=== PATIENT | female | born 1955 | race African-American/Black ===

== ENCOUNTER 2019-10-14 15:37 | Inpatient (IN) | payer MEDICARE, MEDICAID ==
--- NOTE | 2019-10-14 16:38 | ER Document Report ---
ED Medical Screen (RME) - General Chief Complaint: General Weakness Stated Complaint: GENERAL WEAKNESS/SWOLLEN LEGS Time Seen by Provider: 10/14/19 16:24 Notes: Patient is a 64-year-old female who presents emergency department with chief complaint of shortness of breath. Patient reports over the past week she has developed bilateral leg swelling, generalized weakness, shortness of breath and some achiness to her left arm. Patient does have an extensive cardiac history. 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 Patient is on Eliquis. Patient reports she feels like she does have some sort of fluid overload. - Related Data Allergies/Adverse Reactions: No Known Allergies Allergy (Unverified 10/14/19 16:22) Past Medical History - Social History Chew tobacco use (# tins/day): No Frequency of alcohol use: None Drug Abuse: None Physical Exam - Vital signs Vitals: Temp Pulse Resp BP Pulse Ox 98.6 F 61 16 153/83 H 95 10/14/19 15:46 10/14/19 15:46 10/14/19 15:46 10/14/19 15:46 10/14/19 15:46 Course - Re-evaluation Re-evalutation: 10/14/19 16:38 Lungs are clear to auscultation. Patient no acute distress. Patient does report shortness of breath with exertion. Patient does have bilateral pitting edema to lower extremities. I have greeted and performed a rapid initial assessment of this patient. A comprehensive ED assessment and evaluation of the patient, analysis of test results and completion of the medical decision making process will be conducted by additional ED providers. - Vital Signs Vital signs: Temp Pulse Resp BP Pulse Ox 98.6 F 61 16 153/83 H 95 10/14/19 15:46 10/14/19 15:46 10/14/19 15:46 10/14/19 15:46 10/14/19 15:46
[2019-10-14 16:58] LABS: ABSOLUTE BASOPHILS # (AUTO) 0.1 10^3/uL (0.0-0.2); ABSOLUTE EOSINOPHILS # (AUTO) 0.1 10^3/uL (0.0-0.6); ABSOLUTE LYMPHOCYTES (AUTO) 0.9 10^3/uL (0.5-4.7); ABSOLUTE MONOCYTES (AUTO) 0.5 10^3/uL (0.1-1.4); ABSOLUTE NEUT (AUTO) 4.1 10^3/uL (1.7-8.2); BASOPHILS % (AUTO) 1.1 % (0-2); EOSINOPHILS % (AUTO) 1.4 % (0-6); HEMATOCRIT 33.9 % (36.0-47.0); HEMOGLOBIN 11.3 g/dL (12.0-15.5); LYMPHOCYTES % (AUTO) 15.5 % (13-45); MEAN CORPUSCULAR HEMOGLOBIN 29.3 pg (27.0-33.4); MEAN CORPUSCULAR HGB CONC 33.2 g/dL (32.0-36.0); MEAN CORPUSCULAR VOLUME 88 fl (80-97); MONOCYTES % (AUTO) 8.9 % (3-13); PLATELET COUNT 229 10^3/uL (150-450); RED BLOOD COUNT 3.84 10^6/uL (3.72-5.28); SEGMENTED NEUTROPHILS % (AUTO) 73.1 % (42-78); TOTAL CELLS COUNTED % (AUTO) 100 %; WHITE BLOOD COUNT 5.7 10^3/uL (4.0-10.5)
--- NOTE | 2019-10-14 17:08 | RADIOLOGY REPORT (SQ) ---
EXAM DESCRIPTION: CHEST 2 VIEWS IMAGES COMPLETED DATE/TIME: 10/14/2019 4:54 pm REASON FOR STUDY: shortness of breath COMPARISON: None. NUMBER OF VIEWS: Two views. TECHNIQUE: Frontal and lateral radiographic views of the chest acquired. LIMITATIONS: None. FINDINGS: LUNGS AND PLEURA: No opacities, masses or pneumothorax. Trace fluid is seen within the ri ght major fissure. MEDIASTINUM AND HILAR STRUCTURES: No masses or contour abnormality. HEART AND VASCULAR STRUCTURES: Cardiac enlargement. Vascular congestion. BONES: No acute findings. HARDWARE: AICD. Midline surgical changes. OTHER: No other significant finding. IMPRESSION: CARDIAC ENLARGEMENT. VASCULAR CONGESTION. TECHNICAL DOCUMENTATION: JOB ID: [id number] 2010 [employer]- All Rights Reserved Reading location - IP/workstation name: [email or web address]
--- NOTE | 2019-10-14 17:21 | ER Document Report ---
ED General - General Chief Complaint: General Weakness Stated Complaint: GENERAL WEAKNESS/SWOLLEN LEGS Time Seen by Provider: 10/14/19 16:24 Mode of Arrival: Ambulatory Information source: Patient Notes: campus president notes 10/14/19 16:24 - ED [facility]: [id number] : [id number] Patient Age: 64 patient states she has had dinesh leg swelling and weakness x 1 week. patient also c/o shortness of breath with walking. reports hx of CHF, states she feels like she is going back into it. reports extensive cardiac hx. Ruslan notes Patient is a 64-year-old female who presents emergency department with chief complaint of shortness of breath. Patient reports over the past week she has developed bilateral leg swelling, generalized weakness, shortness of breath and some achiness to her left arm. Patient does have an extensive cardiac history. 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 Patient is on Eliquis. Patient reports she feels like she does have some sort of fluid overload. my notes 64-year-old female arrives with 1 week history of weakness and bilateral leg edema and dyspnea on exertion shortness of breath. Patient has a extensive cardiac and CHF history. She has a left-sided pacer on chest x-ray as well as cardiomegaly and congestion per radiologist. She has sternal CABG wiring. Patient reports she has had 20 pound weight gain over the last 1 week with dyspnea on exertion only able to walk around 10 feet without being short of breath severely. Patient is usually seen by [facility] and has a history of poor appetite she is only eaten yogurt today. She took extra Bumex yesterday expecting her edema of her legs to decrease but this did not happen. Patient was up all night urinating however. Patient has 15% ejection fraction on her last cardiology check and [facility]. Her daughters name is Jeni and she requested patient to be admitted to hospital. Patient's mother and father and grandmother and grandfather all had heart disease and they are now . Her daughter has diabetes. Patient has had a valve repair. TRAVEL OUTSIDE OF THE [place] IN LAST 30 DAYS: No - HPI Onset: Last week - Related Data Allergies/Adverse Reactions: No Known Allergies Allergy (Unverified 06/20/20 16:22) Past Medical History - General Information source: Patient, Relative - Social History Smoking Status: Never Smoker Cigarette use (# per day): No Chew tobacco use (# tins/day): No Smoking Education Provided: No Frequency of alcohol use: None Drug Abuse: None Lives with: Family Family History: Reviewed & Not Pertinent Patient has suicidal ideation: No Patient has homicidal ideation: No Physical Exam - Vital signs Vitals: Temp Pulse Resp BP Pulse Ox 98.6 F 61 16 153/83 H 95 10/14/19 15:46 10/14/19 15:46 10/14/19 15:46 10/14/19 15:46 10/14/19 15:46 - General General appearance: Alert - HEENT Head: Normocephalic, Atraumatic Eyes: Normal Pupils: PERRL Nasal: Normal Mouth/Lips: Normal Mucous membranes: Normal Pharynx: Normal Neck: Normal - Respiratory Respiratory status: No respiratory distress Chest status: Nontender Breath sounds: Rales Chest palpation: Normal - Cardiovascular Rhythm: Regular Heart sounds: Normal auscultation Murmur: No - Abdominal Inspection: Normal Distension: No distension Bowel sounds: Normal Tenderness: Nontender Organomegaly: No organomegaly - Rectal Stool: Other - deferred - Genitourinary Speculum exam: Other - deferred - Back Back: Normal - Extremities General upper extremity: Normal inspection General lower extremity: Edema - +2 pitting - Neurological Neuro grossly intact: Yes Cognition: Normal Orientation: AAOx4 [place] Coma Scale Eye Opening: Spontaneous [place] Coma Scale Verbal: Oriented Alberto Coma Scale Motor: Obeys Commands Alberto Coma Scale Total: 15 Speech: Normal Motor strength normal: LUE, RUE, LLE, RLE Sensory: Normal - Psychological Associated symptoms: Normal affect - Skin Skin Temperature: Warm Skin Moisture: Dry Course - Vital Signs Vital signs: Temp Pulse Resp BP Pulse Ox 98.6 F 61 19 151/81 H 95 10/14/19 15:46 10/14/19 15:46 10/14/19 19:01 10/14/19 19:01 10/14/19 19:01 - Laboratory Result Diagrams: 10/14/19 16:45 10/14/19 16:45 Laboratory results interpreted by me: 10/14/19 10/14/19 10/14/19 16:45 16:45 16:45 Hgb 11.3 L Hct 33.9 L RDW 16.0 H Carbon Dioxide 32 H BUN 53 H Creatinine 1.90 H Est GFR ( Amer) 32 L Est GFR (MDRD) Non-Af 27 L Glucose 164 H Magnesium Alkaline Phosphatase 151 H NT-Pro-B Natriuret Pep 65135 H 10/14/19 16:45 Hgb Hct RDW Carbon Dioxide BUN Creatinine Est GFR ( Amer) Est GFR (MDRD) Non-Af Glucose Magnesium 2.6 H Alkaline Phosphatase NT-Pro-B Natriuret Pep - Diagnostic Test Radiology reviewed: Reports reviewed - EKG Interpretation by Me EKG shows normal: Sinus rhythm Rate: Normal Rhythm: Other - Atrial ventricular dual paced rhythm on EKG Critical Care Note - Critical Care Note Total time excluding time spent on procedures (mins): 90 Comments: I called Dr. Ulrich at [phone] and he advises calling the night guard patient at 1900; I spoke with Dr. Kendall Ghosh and he advised IMCU Discharge - Discharge Clinical Impression: WOO (dyspnea on exertion), SOB (shortness of breath), Cardiac LV ejection fraction 10-20% CHF (congestive heart failure) Qualifiers: Heart failure type: unspecified Heart failure chronicity: unspecified Qualified Code(s): I50.9 - Heart failure, unspecified Condition: Good Disposition: ADMITTED INPATIENT Admitting Provider: Augie (Hospitalist) Unit Admitted: [facility]
[2019-10-14 17:22] LABS: ALBUMIN 3.6 g/dL (3.5-5.0); ALKALINE PHOSPHATASE 151 U/L (38-126); ANION GAP 8 (5-19); ASPARTATE AMINO TRANSFERASE 33 U/L (14-36); BILIRUBIN,DIRECT 0.3 mg/dL (0.0-0.4); BILIRUBIN,TOTAL 1.2 mg/dL (0.2-1.3); BLOOD UREA NITROGEN 53 mg/dL (7-20); CALCIUM 9.1 mg/dL (8.4-10.2); CARBON DIOXIDE 32 mmol/L (22-30); CHLORIDE 99 mmol/L (98-107); GLUCOSE 164 mg/dL (75-110); TOTAL PROTEIN 6.9 g/dL (6.3-8.2)
[2019-10-14] MEDS ORDERED: BUMETANIDE INJ/PF 1 MG/4 ML SDV IV ONE (17:28)
[2019-10-14 17:33] LABS: TROPONIN I 0.014 ng/mL
[2019-10-14] MEDS ORDERED: METOLAZONE 5 MG TABLET PO ONE (17:47)
[2019-10-14] MEDS ORDERED: METOLAZONE 5 MG TABLET ONE (18:28)
--- NOTE | 2019-10-14 18:54 | EKG REPORT ---
SEVERITY:- ABNORMAL ECG - ATRIAL-VENTRICULAR DUAL-PACED RHYTHM : Confirmed by: Taye Easton MD 14-Oct-2019 18:53:07
[2019-10-14] MEDS ORDERED: ACETAMINOPHEN 325 MG TABLET PO PRN (20:49)
[2019-10-14] MEDS ORDERED: MELATONIN 5 MG TABLET PO PRN (20:49)
[2019-10-14] MEDS ORDERED: HYDRALAZINE HCL INJ/PF 20 MG/1 ML SDV IV PRN (20:49)
[2019-10-14] MEDS ORDERED: MAGNESIUM HYDROXIDE SUSP 30 ML UDCUP PO PRN (20:49)
[2019-10-14] MEDS ORDERED: PROMETHAZINE HCL INJ 25 MG/1 ML VIAL IV PRN (20:49)
[2019-10-14] MEDS ORDERED: LORAZEPAM INJ 2 MG/1 ML VIAL IV PRN (20:49)
[2019-10-14] MEDS ORDERED: GUAIFENESIN SYRP 200 MG/10 ML UDC PO PRN (20:49)
[2019-10-14] MEDS ORDERED: MORPHINE SULFATE 10 MG/ML INJ IV PRN (20:49)
[2019-10-14] MEDS ORDERED: NORMAL SALINE 250 ML with FUROSEMIDE 250 MG IV PRN ×2 (20:51)
[2019-10-14] MEDS ORDERED: NITROGLYCERIN 2% OINTMENT 1 GM PACKET TP ONE (21:15)
[2019-10-14] MEDS ORDERED: HEPARIN SOD (PORCINE) 5,000 UNIT/ML 1 ML VIAL SUBCUT SCH (22:00)
[2019-10-14] MEDS: POTASSIUM CHLORIDE 10 MEQ TABLET.ER PO SCH (22:27)
[2019-10-14] MEDS: LOSARTAN POTASSIUM 25 MG TABLET PO SCH (22:27)
--- NOTE | 2019-10-14 22:38 | PDOC H&P ---
History of Present Illness Admission Date/PCP: 10/14/19 20:03 No local PCP Patient complains of: Lower extremity edema History of Present Illness: JULITO NICHOLS is a 64 year old female who presents to the emergency room with a one-week history of lower extremity edema. She admits to the constant gradual development of bilateral lower extremity swelling over the last week, accompanied by generalized weakness and associated with progressively worsening dyspnea on exertion and a 20 pound weight gain. She denies other associated or accompanying signs and symptoms. She admits prior similar episodes when she has had "fluid overload". She has a history of severe systolic congestive heart failure and took an additional dose of Bumex yesterday with no improvement in her lower extremity edema. She denies identification of any aggravating or ameliorating factors for her lower extremity edema. In the emergency room she was found to have early pulmonary edema by chest x-ray and a BNP of 36,000. Her emergency room exam demonstrated pitting edema of the bilateral lower extremities. She was subsequently admitted to the hospital for further evaluation and treatment per the CHF protocol on IMCU. Past Medical History Cardiac Medical History: Reports: Congestive Heart Failure - Systolic ejection fraction of 15% per patient's report, Hypertension, Other - Valvular heart disease, pacemaker/defibrillator Denies: Atrial Fibrillation, Coronary Artery Disease, Myocardial Infarction Pulmonary Medical History: Reports: Asthma - Since childhood, Tuberculosis - Remote past Denies: Chronic Obstructive Pulmonary Disease (COPD) EENT Medical History: Denies: Cataracts, Ears - Hearing aids Neurological Medical History: Denies: Hemorrhagic CVA, Ischemic CVA, Seizures Endocrine Medical History: Reports: Obesity Denies: Diabetes Mellitus Type 1, Diabetes Mellitus Type 2, Hyperthyroidism, Hypothyroidism Renal/ Medical History: Reports: Chronic Kidney Disease Denies: Nephrolithiasis Malignancy Medical History: Reports: None GI Medical History: Denies: Cirrhosis, Crohn's Disease, Hepatitis, Peptic Ulcer Disease, Ulcerative Colitis Musculoskeltal Medical History: Denies: Arthritis, Gout Skin Medical History: Reports: Eczema - Since childhood Denies: Psoriasis Psychiatric Medical History: Denies: Alcohol Dependency, Substance Abuse, Tobacco Dependency Traumatic Medical History: Reports: None Hematology: Denies: Anemia, Bleeding Tendencies Infectious Medical History: Reports: None Past Surgical History Past Surgical History: Reports: Cardiac Catheterization, Herniorrhaphy, Hysterectomy, Internal Defibrillator - AICD/pacemaker, Pacemaker - AICD/pacemaker, Valve Replacement - Mitral valve replacement (bovine valve), Vascular Surgery - Cardiac ablation Social History Information Source: Patient Lives with: Family Smoking Status: Never Smoker Electronic Cigarette use?: No Frequency of Alcohol Use: None Hx Recreational Drug Use: No Drugs: None Hx Prescription Drug Abuse: No - Advance Directive Resuscitation Status: Full Code Surrogate healthcare decision maker:: Shahana Nichols Family History Family History: CAD, DM, Hypertension, Other - Congestive heart failure. denies: Malignancy Parental Family History Reviewed: Yes Children Family History Reviewed: No Sibling(s) Family History Reviewed.: Yes Medication/Allergy Allergies/Adverse Reactions: No Known Allergies Allergy (Unverified 10/14/19 16:22) Review of Systems Constitutional: PRESENT: weakness. ABSENT: chills, fever(s) Eyes: ABSENT: visual disturbances, other - Eye pain Ears: ABSENT: hearing changes, other - Ear pain Nose, Mouth, and Throat: ABSENT: headache(s), sore throat Cardiovascular: PRESENT: as per HPI, dyspnea on exertion, edema. ABSENT: chest pain, orthropnea, palpitations Respiratory: ABSENT: cough, dyspnea Gastrointestinal: ABSENT: abdominal pain, constipation, diarrhea, nausea, vomiting Genitourinary: ABSENT: dysuria, hematuria Musculoskeletal: ABSENT: back pain, joint swelling Integumentary: ABSENT: pruritus, rash Neurological: ABSENT: confusion, convulsions, focal weakness, memory loss, syncope Psychiatric: ABSENT: anxiety, depression Endocrine: ABSENT: cold intolerance, heat intolerance, polydipsia, polyphagia, polyuria Hematologic/Lymphatic: ABSENT: easy bleeding, easy bruising Allergic/Immunologic: ABSENT: seasonal rhinorrhea Physical Exam Vital Signs: Temp Pulse Resp BP Pulse Ox 98.6 F 61 19 151/81 H 95 10/14/19 15:46 10/14/19 15:46 10/14/19 19:01 10/14/19 19:01 10/14/19 19:01 Intake & Output 10/12/19 10/13/19 10/14/19 23:59 23:59 23:59 Weight 101.151 kg General appearance: PRESENT: no acute distress, cooperative, morbidly obese Head exam: PRESENT: atraumatic, normocephalic Eye exam: PRESENT: conjunctiva pink. ABSENT: conjunctival injection, scleral icterus Ear exam: PRESENT: normal external ear exam. ABSENT: bleeding, drainage Mouth exam: PRESENT: dry mucosa, neck supple Neck exam: PRESENT: JVD - Bilateral at 90 degrees of elevation. ABSENT: thyromegaly, tracheal deviation Respiratory exam: PRESENT: decreased breath sounds - Breath sounds decreased at both bases, rales - Bibasilar fine rales, symmetrical Cardiovascular exam: PRESENT: RRR. ABSENT: clicks, gallop - S4 gallop, rubs Pulses: PRESENT: normal carotid pulses, normal radial pulses Vascular exam: PRESENT: normal capillary refill. ABSENT: pallor GI/Abdominal exam: PRESENT: normal bowel sounds, soft Rectal exam: PRESENT: deferred Extremities exam: PRESENT: pedal edema - Bilateral, +2 edema - 2+ pitting edema of the bilateral lower extremities below the knees. ABSENT: joint swelling Musculoskeletal exam: ABSENT: deformity, dislocation Neurological exam: PRESENT: alert, oriented to person, oriented to place, oriented to time, oriented to situation, CN II-XII grossly intact. ABSENT: motor sensory deficit Psychiatric exam: PRESENT: appropriate affect, normal mood Skin exam: PRESENT: dry, intact, warm. ABSENT: jaundice, rash, urticaria Results Laboratory Results: 10/14/19 16:45 10/14/19 16:45 10/14/19 10/14/19 10/14/19 16:45 16:45 16:45 WBC 5.7 RBC 3.84 Hgb 11.3 L Hct 33.9 L MCV 88 MCH 29.3 MCHC 33.2 RDW 16.0 H Plt Count 229 Seg Neutrophils % 73.1 Sodium 138.9 Potassium 4.0 Chloride 99 Carbon Dioxide 32 H Anion Gap 8 BUN 53 H Creatinine 1.90 H Est GFR ( Amer) 32 L Glucose 164 H Calcium 9.1 Magnesium 2.6 H Total Bilirubin 1.2 AST 33 Alkaline Phosphatase 151 H Total Protein 6.9 Albumin 3.6 10/14/19 16:45 Troponin I 0.014 NT-Pro-B Natriuret Pep 17387 H Impressions: Chest X-Ray 10/14/19 16:29 IMPRESSION: CARDIAC ENLARGEMENT. VASCULAR CONGESTION. Assessment and Plan - Diagnosis (1) Pulmonary edema with congestive heart failure Is this a current diagnosis for this admission?: Yes (2) Acute on chronic systolic congestive heart failure Is this a current diagnosis for this admission?: Yes (3) Chronic systolic congestive heart failure Is this a current diagnosis for this admission?: Yes (4) Cardiac LV ejection fraction 10-20% Is this a current diagnosis for this admission?: Yes (5) Bilateral lower extremity edema Is this a current diagnosis for this admission?: Yes (6) History of valvular heart disease Is this a current diagnosis for this admission?: Yes - Plan Summary Summary: Patient is admitted to the [facility] for the congestive heart failure protocol, where she will receive routine supportive and symptomatic cares. A cardiology consultation with Dr. Hartmann will be obtained. Patient will use morphine sulfate 2 mg IV every hour as needed for severe dyspnea. 1 inch of Nitropaste will be applied every 6 hours. She will be started on a continuous furosemide infusion for initial treatment. She will use Ativan 1 mg IV every 4 hours as needed for anxiety or restlessness. Laboratory and ultrasound evaluations will be obtained as per the CHF protocol. Patient will be placed on a cardiac diet. She will receive supportive supplemental oxygen therapy as required to maintain an adequate oxygen saturation. - Time Time Spent with patient: 15-24 minutes Medications reviewed and adjusted accordingly: Yes Anticipated discharge: Home with Homehealth - Inpatient Certification Based on my medical assessment, after consideration of the patient's comorbidities, presenting symptoms, or acuity I expect that the services needed warrant INPATIENT care.: Yes I certify that my determination is in accordance with my understanding of Medicare's requirements for reasonable and necessary INPATIENT services [42 CFR 412.3e].: Yes Medical Necessity: Need Close Monitoring Due to Risk of Patient Decompensation, Need For Continuous Telemetry Monitoring, Risk of Complication if Not Cared For in Hospital
[2019-10-14 23:20] LABS: APPEARANCE,URINE CLEAR; BILIRUBIN,URINE NEGATIVE (NEGATIVE); COLOR,URINE STRAW; GLUCOSE, URINE NEGATIVE (NEGATIVE); KETONES,URINE NEGATIVE (NEGATIVE); LEUKOCYTE ESTERASE,URINE NEGATIVE (NEGATIVE); NITRITE,URINE NEGATIVE (NEGATIVE); PROTEIN,URINE NEGATIVE (NEGATIVE); URINE SPECIFIC GRAVITY 1.006; UROBILINOGEN,URINE NEGATIVE mg/dL (<2.0)
[2019-10-14 23:36] LABS: CREATINE KINASE MB 0.28 ng/mL (<4.55); TROPONIN I 0.015 ng/mL
[2019-10-15 01:04] LABS: ANION GAP 10 (5-19); BLOOD UREA NITROGEN 56 mg/dL (7-20); CALCIUM 8.9 mg/dL (8.4-10.2); CARBON DIOXIDE 27 mmol/L (22-30); CHLORIDE 100 mmol/L (98-107); GLUCOSE 242 mg/dL (75-110); POTASSIUM 3.8 mmol/L (3.6-5.0)
[2019-10-15 05:35] LABS: HEMATOCRIT 29.6 % (36.0-47.0); HEMOGLOBIN 9.8 g/dL (12.0-15.5); MEAN CORPUSCULAR HGB CONC 33.1 g/dL (32.0-36.0); MEAN CORPUSCULAR VOLUME 88 fl (80-97); PLATELET COUNT 198 10^3/uL (150-450); RED BLOOD COUNT 3.39 10^6/uL (3.72-5.28); RED CELL DISTRIBUTION WIDTH 16.3 % (11.5-14.0); WHITE BLOOD COUNT 4.8 10^3/uL (4.0-10.5)
[2019-10-15 05:41] LABS: VENOUS BLOOD BASE EXCESS 5.9 mmol/L; VENOUS BLOOD PCO2 41.7 mmHg (35-63); VENOUS BLOOD PH 7.48 (7.30-7.42)
[2019-10-15] MEDS ORDERED: NITROGLYCERIN 2% OINTMENT 1 GM PACKET TP SCH (06:00)
[2019-10-15 06:06] LABS: ANION GAP 6 (5-19); BLOOD UREA NITROGEN 54 mg/dL (7-20); CALCIUM 8.8 mg/dL (8.4-10.2); CARBON DIOXIDE 31 mmol/L (22-30); CHLORIDE 100 mmol/L (98-107); CHOLESTEROL 84.13 mg/dL (0-200); GLUCOSE 154 mg/dL (75-110); POTASSIUM 3.6 mmol/L (3.6-5.0); TRIGLYCERIDES 51 mg/dL (<150)
[2019-10-15 06:11] LABS: CREATINE KINASE MB 0.25 ng/mL (<4.55); TROPONIN I 0.017 ng/mL
[2019-10-15 06:17] LABS: DIRECT LDL 50 mg/dL (<100)
[2019-10-15] MEDS: PANTOPRAZOLE SODIUM 40 MG TABLET.DR PO SCH (06:39)
[2019-10-15] MEDS ORDERED: FUROSEMIDE INJ/PF 100 MG/10 ML SDV ONE ×2 (06:41→06:52)
[2019-10-15] MEDS: LOSARTAN POTASSIUM 25 MG TABLET PO SCH (09:45)
[2019-10-15] MEDS: APIXABAN 5 MG TABLET PO SCH ×2 (09:46→18:02)
[2019-10-15] MEDS: DOCUSATE SODIUM 100 MG CAPSULE PO SCH ×2 (09:46→18:02)
[2019-10-15] MEDS: POTASSIUM CHLORIDE 10 MEQ TABLET.ER PO SCH ×2 (09:46→21:41)
[2019-10-15] MEDS ORDERED: CLOPIDOGREL BISULFATE 75 MG TABLET PO SCH (10:00)
--- NOTE | 2019-10-15 11:16 | PDOC CONSULTATION ---
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 She admits to the constant gradual development of bilateral lower extremity swelling over the last week, accompanied by generalized weakness associated with progressively worsening dyspnea on exertion and a 20 pound weight gain as well as LE edema. She had been treated with lasix since admission and feels slightly better this morning. She specifically denies CP, palpitations, dizziness, lightheadedness, syncope and presyncope. Her cardiac troponin had been negative and her BNP is elevated at 36K. Her telemetry shows A-V pacing. Physical exam on 10/15/2019: GENERAL: Pleasant and conversational. Morbidly obese. Oriented x3 with normal mood. Not in acute distress. Well groomed and well developed. HEENT: Normocephalic, atraumatic. Pupils equal. Sclerae anicteric. Oropharynx moist. NECK: Difficult to evaluate for JVD given her body habitus. No carotid bruits. LUNGS: Clear to auscultation bilaterally. Normal respiratory effort without the use of accessory muscles or intercostal retractions. CARDIOVASCULAR: Regular rate and rhythm, normal S1 and S2 without murmurs, rubs, or gallops. PMI not displaced. EXTREMITIES: 3+ pitting edema bilaterally, no cyanosis, no clubbing. Distal pulses are difficult to palpate given her body habitus. SKIN: No lesions or rashes. MUSCULOSKELETAL: No chest tenderness to palpation. NEUROLOGIC: Nonfocal. No gross sensory or motor deficits bilateral upper or l ower extremities. Past Medical History Cardiac Medical History: Reports: Congestive Heart Failure - Systolic ejection fraction of 15% per patient's report, Hypertension, Other - Valvular heart disease, pacemaker/defibrillator Denies: Atrial Fibrillation, Coronary Artery Disease, Myocardial Infarction Pulmonary Medical History: Reports: Asthma - Since childhood, Tuberculosis - Remote past Denies: Chronic Obstructive Pulmonary Disease (COPD) EENT Medical History: Denies: Cataracts, Ears - Hearing aids Neurological Medical History: Denies: Hemorrhagic CVA, Ischemic CVA, Seizures Endocrine Medical History: Reports: Obesity Denies: Diabetes Mellitus Type 1, Diabetes Mellitus Type 2, Hyperthyroidism, Hypothyroidism Renal/ Medical History: Reports: Chronic Kidney Disease Denies: Nephrolithiasis Malignancy Medical History: Reports: None GI Medical History: Denies: Cirrhosis, Crohn's Disease, Hepatitis, Peptic Ulcer Disease, Ulcerative Colitis Musculoskeltal Medical History: Denies: Arthritis, Gout Skin Medical History: Reports: Eczema - Since childhood Denies: Psoriasis Psychiatric Medical History: Reports: Depression Denies: Alcohol Dependency, Substance Abuse, Tobacco Dependency Traumatic Medical History: Reports: None Hematology: Denies: Anemia, Bleeding Tendencies Infectious Medical History: Reports: None Past Surgical History Past Surgical History: Reports: Cardiac Catheterization, Herniorrhaphy, Hysterectomy, Internal Defibrillator - AICD/pacemaker, Pacemaker - AICD/pacemaker, Valve Replacement - Mitral valve replacement (bovine valve), Vascular Surgery - Cardiac ablation Social History Lives with: Family Smoking Status: Never Smoker Electronic Cigarette use?: No Frequency of Alcohol Use: None Hx Recreational Drug Use: No Drugs: None Hx Prescription Drug Abuse: No - Advance Directive Resuscitation Status: Full Code Family History Family History: CAD, DM, Hypertension, Other - Congestive heart failure. denies: Malignancy Parental Family History Reviewed: Yes Children Family History Reviewed: Yes Sibling(s) Family History Reviewed.: Yes Medication/Allergy Allergies/Adverse Reactions: No Known Allergies Allergy (Unverified 10/14/19 16:22) Physical Exam Vital Signs: Temp Pulse Resp BP Pulse Ox 98.1 F 61 15 158/89 H 97 10/15/19 03:41 10/15/19 03:41 10/15/19 03:41 10/15/19 03:41 10/15/19 03:41 Intake & Output 10/14/19 10/15/19 10/16/19 06:59 06:59 06:59 Weight 101.5 kg Results Laboratory Results: 10/15/19 05:19 10/15/19 05:19 10/14/19 10/14/19 10/14/19 16:45 16:45 16:45 WBC 5.7 RBC 3.84 Hgb 11.3 L Hct 33.9 L MCV 88 MCH 29.3 MCHC 33.2 RDW 16.0 H Plt Count 229 Seg Neutrophils % 73.1 VBG pH VBG pCO2 VBG HCO3 VBG Base Excess Sodium 138.9 Potassium 4.0 Chloride 99 Carbon Dioxide 32 H Anion Gap 8 BUN 53 H Creatinine 1.90 H Est GFR ( Amer) 32 L Glucose 164 H Calcium 9.1 Magnesium 2.6 H Total Bilirubin 1.2 AST 33 Alkaline Phosphatase 151 H Total Protein 6.9 Albumin 3.6 Triglycerides Cholesterol LDL Cholesterol Direct VLDL Cholesterol HDL Cholesterol TSH Free T3 pg/mL Urine Color Urine Appearance Urine pH Ur Specific [place] Urine Protein Urine Glucose (UA) Urine Ketones Urine Blood Urine Nitrite Ur Leukocyte Esterase Urine WBC (Auto) Urine RBC (Auto) 10/14/19 10/14/19 10/14/19 16:45 20:21 22:56 WBC RBC Hgb Hct MCV MCH MCHC RDW Plt Count Seg Neutrophils % VBG pH VBG pCO2 VBG HCO3 VBG Base Excess Sodium 136.6 L Potassium 3.8 Chloride 100 Carbon Dioxide 27 Anion Gap 10 BUN 56 H Creatinine 1.84 H Est GFR ( Amer) 34 L Glucose 242 H Calcium 8.9 Magnesium Total Bilirubin AST Alkaline Phosphatase Total Protein Albumin Triglycerides Cholesterol LDL Cholesterol Direct VLDL Cholesterol HDL Cholesterol TSH Free T3 pg/mL 3.56 Urine Color STRAW Urine Appearance CLEAR Urine pH 7.0 Ur Specific [place] 1.006 Urine Protein NEGATIVE Urine Glucose (UA) NEGATIVE Urine Ketones NEGATIVE Urine Blood NEGATIVE Urine Nitrite NEGATIVE Ur Leukocyte Esterase NEGATIVE Urine WBC (Auto) 1 Urine RBC (Auto) 1 10/15/19 10/15/19 10/15/19 05:19 05:19 05:19 WBC 4.8 RBC 3.39 L Hgb 9.8 L Hct 29.6 L MCV 88 MCH 29.0 MCHC 33.1 RDW 16.3 H Plt Count 198 Seg Neutrophils % VBG pH VBG pCO2 VBG HCO3 VBG Base Excess Sodium 136.6 L Potassium 3.6 Chloride 100 Carbon Dioxide 31 H Anion Gap 6 BUN 54 H Creatinine 1.82 H Est GFR ( Amer) 34 L Glucose 154 H Calcium 8.8 Magnesium 2.2 Total Bilirubin AST Alkaline Phosphatase Total Protein Albumin Triglycerides 51 Cholesterol 84.13 LDL Cholesterol Direct 50 VLDL Cholesterol 10.0 HDL Cholesterol 24 L TSH 1.33 Free T3 pg/mL Urine Color Urine Appearance Urine pH Ur Specific [place] Urine Protein Urine Glucose (UA) Urine Ketones Urine Blood Urine Nitrite Ur Leukocyte Esterase Urine WBC (Auto) Urine RBC (Auto) 10/15/19 05:19 WBC RBC Hgb Hct MCV MCH MCHC RDW Plt Count Seg Neutrophils % VBG pH 7.48 H VBG pCO2 41.7 VBG HCO3 30.0 VBG Base Excess 5.9 Sodium Potassium Chloride Carbon Dioxide Anion Gap BUN Creatinine Est GFR ( Amer) Glucose Calcium Magnesium Total Bilirubin AST Alkaline Phosphatase Total Protein Albumin Triglycerides Cholesterol LDL Cholesterol Direct VLDL Cholesterol HDL Cholesterol TSH Free T3 pg/mL Urine Color Urine Appearance Urine pH Ur Specific [place] Urine Protein Urine Glucose (UA) Urine Ketones Urine Blood Urine Nitrite Ur Leukocyte Esterase Urine WBC (Auto) Urine RBC (Auto) 10/14/19 10/14/19 10/14/19 16:45 22:56 22:56 Creatine Kinase 31 CK-MB (CK-2) 0.28 Troponin I 0.014 0.015 NT-Pro-B Natriuret Pep [id number] H 10/15/19 10/15/19 05:19 05:19 Creatine Kinase 28 L CK-MB (CK-2) 0.25 Troponin I 0.017 NT-Pro-B Natriuret Pep Impressions: Chest X-Ray 10/14/19 16:29 IMPRESSION: CARDIAC ENLARGEMENT. VASCULAR CONGESTION. 10/15/19 05:19 10/15/19 05:19 MCV 88 fl (80-97) 10/15/19 05:19 MCH 29.0 pg (27.0-33.4) 10/15/19 05:19 MCHC 33.1 g/dL (32.0-36.0) 10/15/19 05:19 RDW 16.3 % (11.5-14.0) H 10/15/19 05:19 Seg Neutrophils % 73.1 % (42-78) 10/14/19 16:45 VBG pH 7.48 (7.30-7.42) H 10/15/19 05:19 VBG pCO2 41.7 mmHg (35-63) 10/15/19 05:19 VBG HCO3 30.0 mmol/L (20-32) 10/15/19 05:19 VBG Base Excess 5.9 mmol/L 10/15/19 05:19 Chloride 100 mmol/L (98-107) 10/15/19 05:19 Carbon Dioxide 31 mmol/L (22-30) H 10/15/19 05:19 Anion Gap 6 (5-19) 10/15/19 05:19 Est GFR ( Amer) 34 (>60) L 10/15/19 05:19 Glucose 154 mg/dL (75-110) H 10/15/19 05:19 Calcium 8.8 mg/dL (8.4-10.2) 10/15/19 05:19 Magnesium 2.2 mg/dL (1.6-2.3) 10/15/19 05:19 Total Bilirubin 1.2 mg/dL (0.2-1.3) 10/14/19 16:45 AST 33 U/L (14-36) 10/14/19 16:45 Alkaline Phosphatase 151 U/L (38-126) H 10/14/19 16:45 Total Protein 6.9 g/dL (6.3-8.2) 10/14/19 16:45 Albumin 3.6 g/dL (3.5-5.0) 10/14/19 16:45 Triglycerides 51 mg/dL (<150) 10/15/19 05:19 Cholesterol 84.13 mg/dL (0-200) 10/15/19 05:19 LDL Cholesterol Direct 50 mg/dL (<100) 10/15/19 05:19 VLDL Cholesterol 10.0 mg/dL (10-31) 10/15/19 05:19 HDL Cholesterol 24 mg/dL (>40) L 10/15/19 05:19 TSH 1.33 uIU/mL (0.47-4.68) 10/15/19 05:19 Free T3 pg/mL 3.56 pg/mL (2.77-5.27) 10/14/19 16:45 Urine Color STRAW 10/14/19 20:21 Urine Appearance CLEAR 10/14/19 20:21 Urine pH 7.0 (5.0-9.0) 10/14/19 20:21 Ur Specific [place] 1.006 10/14/19 20:21 Urine Protein NEGATIVE mg/dL (NEGATIVE) 10/14/19 20:21 Urine Glucose (UA) NEGATIVE mg/dL (NEGATIVE) 10/14/19 20:21 Urine Ketones NEGATIVE mg/dL (NEGATIVE) 10/14/19 20:21 Urine Blood NEGATIVE (NEGATIVE) 10/14/19 20:21 Urine Nitrite NEGATIVE (NEGATIVE) 10/14/19 20:21 Ur Leukocyte Esterase NEGATIVE (NEGATIVE) 10/14/19 20:21 Urine WBC (Auto) 1 /HPF 10/14/19 20:21 Urine RBC (Auto) 1 /HPF 10/14/19 20:21 10/14/19 10/14/19 10/14/19 16:45 22:56 22:56 Creatine Kinase 31 CK-MB (CK-2) 0.28 Troponin I 0.014 0.015 NT-Pro-B Natriuret Pep [id number] H 10/15/19 10/15/19 05:19 05:19 Creatine Kinase 28 L CK-MB (CK-2) 0.25 Troponin I 0.017 NT-Pro-B Natriuret Pep Current Medication List Generic Name Dose Route Start Last Admin Trade Name Freq PRN Reason Stop Dose Admin Acetaminophen 650 mg 10/14/19 20:49 Tylenol 325 Mg Tablet PO 11/13/19 20:48 Q4HP PRN For headache, pain or fever Al Hydrox/Mg Hydrox/Simethicone 30 ml 10/14/19 20:49 Maalox Plus Susp 30 Udcup PO 11/13/19 20:48 Q6HP PRN [facility]ART[facility]URN Apixaban 5 mg 10/15/19 10:00 Eliquis 5 Mg Tablet PO 11/14/19 09:59 BID [facility] Clopidogrel Bisulfate 75 mg 10/15/19 10:00 Plavix 75 Mg Tablet PO 11/14/19 09:59 DAILY [facility] Docusate Sodium 100 mg 10/15/19 10:00 Colace 100 Mg Capsule PO 11/14/19 09:59 BID [facility] Guaifenesin 200 mg 10/14/19 20:49 Robitussin Syrup 200 Mg/10 Ml Ud Cup PO 11/13/19 20:48 Q4HP PRN COUGH Hydralazine HCl 20 mg 10/14/19 20:49 Apresoline Inj/Pf 20 Mg/1 Ml Sdv IV 11/13/19 20:48 Q4HP PRN Give For Sbp > 160 / Dbp > 100 Furosemide 250 mg/ Sodium 250 mls @ 20 mls/hr 10/14/19 20:51 10/15/19 06:48 Chloride IV 11/13/19 20:50 20 mg/hr CONTINUOUS PRN 20 mls/hr THIS MED IS NOT "PRN" Administration 20 MG/HR Lorazepam 1 mg 10/14/19 20:49 Ativan Inj 2 Mg/1 Ml Vial IV 10/21/19 20:48 Q4HP PRN ANXIETY/AGITATION Losartan Potassium 25 mg 10/14/19 22:00 10/14/19 22:27 Cozaar 25 Mg Tablet PO 11/13/19 21:59 25 mg Q12 RANDY Administration Magnesium Hydroxide 30 ml 10/14/19 20:49 Milk Of Magnesia 30 Ml Udcup PO 11/13/19 20:48 HSP PRN FOR CONSTIPATION Melatonin 10 mg 10/14/19 20:49 Melatonin 5 Mg Tablet PO 11/13/19 20:48 HSP PRN SLEEP OR INSOMNIA Morphine Sulfate 2 mg 10/14/19 20:49 Morphine 10 Mg/Ml Inj IV 10/21/19 20:48 Q1HP PRN Acute Severe Dyspnea Nitroglycerin 1 gm 10/15/19 06:00 10/15/19 06:39 Nitrol 2% Ointment 1gm Packet TP 11/14/19 05:59 1 gm Q6 RANDY Administration Pantoprazole Sodium 40 mg 10/15/19 06:00 10/15/19 06:[address] Tablet PO 11/14/19 05:59 40 mg Q6AM RANDY Administration Potassium Chloride 20 meq 10/14/19 22:00 10/14/19 22:27 Klor-Con 10 Meq Tablet Er PO 11/13/19 21:59 20 meq Q12 RANDY Administration Promethazine HCl 12.5 mg 10/14/19 20:49 Phenergan Inj 25 Mg/1 Ml Vial IV 11/13/19 20:48 Q4HP PRN UNRESOLVED NAUSEA/VOMITING Sodium Chloride 2.5 ml 10/14/19 22:00 10/15/19 06:39 Saline Flush 2.5 Ml Monoject Prefil Syrin IV 11/13/19 21:59 2.5 ml Q8 RANDY Administration Discontinued Medications Generic Name Dose Route Start Last Admin Trade Name Freq PRN Reason Stop Dose Admin Bumetanide 1 mg 10/14/19 17:28 10/14/19 18:26 Bumex Inj/Pf 1 Mg/4 Ml Sdv IV 10/14/19 17:29 1 mg NOW ONE Administration Furosemide Confirm 10/15/19 06:41 10/15/19 07:13 Lasix Inj/Pf 100 Mg/10 Ml Sdv Administered 10/15/19 06:42 Not Given Dose 100 mg .ROUTE .STK-MED ONE Furosemide Confirm 10/15/19 06:52 10/15/19 07:13 Lasix Inj/Pf 100 Mg/10 Ml Sdv Administered 10/15/19 06:53 Not Given Dose 100 mg .ROUTE .STK-MED ONE Heparin Sodium (Porcine) 5,000 unit 10/14/19 22:00 Heparin Inj 5,000 Units/Ml 1 Ml Vial SUBCUT 11/13/19 21:59 Q8 RANDY Metolazone 5 mg 10/14/19 17:47 10/14/19 18:36 Zaroxolyn 5 Mg Tablet PO 10/14/19 17:48 5 mg NOW ONE Administration Metolazone Confirm 10/14/19 18:28 10/14/19 18:36 Zaroxolyn 5 Mg Tablet Administered 10/14/19 18:29 Not Given Dose 5 mg .ROUTE .STK-MED ONE Nitroglycerin 1 gm 10/14/19 21:15 10/14/19 22:28 Nitrol 2% Ointment 1gm Packet TP 10/14/19 21:16 1 gm NOW ONE Administration Assessment & Plan - Diagnosis (1) Acute on chronic systolic congestive heart failure Is this a current diagnosis for this admission?: Yes Plan: Known HFrEF that appears to be secondary to a non-ischemic CM. She is currently fluid overloaded likely secondary to dietary indiscretions. She feels better this morning. Recommendations: -Diuresis with your choice of diuretic. -Low sodium diet, <1500mg of sodium daily. -Strict intake and output. -Continue with cardiac telemetry. -At least daily BMP and replace electrolytes as needed. -Echocardiogram. [place] [facility] [place]Daily weight. -Discontinue Cozaar. -Start Entresto 49mg/51 mg bid. (2) History of valvular heart disease Is this a current diagnosis for this admission?: Yes Plan: The patient had MVR with a bioprosthesis, she believes it was secondary to severe MR. Recommendations: [place] [facility] [place] (3) Cardiomyopathy Qualifiers: Cardiomyopathy type: dilated Qualified Code(s): I42.0 - Dilated cardiomyopathy Is this a current diagnosis for this admission?: Yes Plan: Suspected to be non-ischemic as the patient states she had LHC in the past without obstructive CAD. Recommendations: [place] [facility] [place] (4) Hypertension Qualifiers: Hypertension type: essential hypertension Qualified Code(s): I10 - Essential (primary) hypertension Is this a current diagnosis for this admission?: Yes Plan: Her BP is above her goal of 130/80 or below, I will defer further treatment to the hospitalist team. (5) CKD (chronic kidney disease) Plan: Will defer further management to hospitalist team.
[2019-10-15 11:38] LABS: CREATINE KINASE MB 0.29 ng/mL (<4.55); TROPONIN I 0.012 ng/mL
[2019-10-15] MEDS ORDERED: HYDRALAZINE HCL INJ/PF 20 MG/1 ML SDV IV PRN (11:53)
--- NOTE | 2019-10-15 13:14 | PDOC PROGRESS REPORT ---
Subjective Progress Note for:: 10/15/19 Subjective:: The patient was seen on morning rounds. She is found sitting up in bed, comfortably, on room air. She reports that she is feeling much better today. She does continue to have bilateral lower extremity edema, however, no longer with dyspnea while at rest. She has not yet been ambulatory. She admits to mild othopnea. She denies fever, chest pain, palpitations, recent AICD fire, dyspnea to rest, cough, abdominal pain, nausea and vomiting. She has no further questions or concerns today. Discussed plan with nursing. Reason For Visit: ACUTE ON CHRONIC SYSTOLIC CONGESTIVE HEART FAILURE Physical Exam Vital Signs: Temp Pulse Resp BP Pulse Ox 97.7 F 60 22 H 143/93 H 95 10/15/19 07:55 10/15/19 07:55 10/15/19 07:55 10/15/19 07:55 10/15/19 07:55 Intake & Output 10/14/19 10/15/19 10/16/19 06:59 06:59 06:59 Weight 101.5 kg General appearance: PRESENT: no acute distress, cooperative, morbidly obese, well-developed, well-nourished Head exam: PRESENT: atraumatic, normocephalic Eye exam: PRESENT: conjunctiva pink, EOMI, PERRLA. ABSENT: scleral icterus Ear exam: PRESENT: normal external ear exam Mouth exam: PRESENT: moist, tongue midline Neck exam: ABSENT: carotid bruit, JVD, lymphadenopathy, thyromegaly Respiratory exam: PRESENT: clear to auscultation dinesh, decreased breath sounds - bibasilar, symmetrical, unlabored. ABSENT: crackles, rales, rhonchi, wheezes Cardiovascular exam: PRESENT: RRR, +S1, +S2. ABSENT: diastolic murmur, rubs, systolic murmur Pulses: PRESENT: normal dorsalis pedis pul Vascular exam: PRESENT: normal capillary refill GI/Abdominal exam: PRESENT: normal bowel sounds, soft. ABSENT: distended, guarding, mass, organolmegaly, rebound, tenderness Rectal exam: PRESENT: deferred Extremities exam: PRESENT: full ROM, +1 edema - nonpitting edema BLE. ABSENT: calf tenderness, clubbing, pedal edema Neurological exam: PRESENT: alert, awake, oriented to person, oriented to place, oriented to time, oriented to situation, CN II-XII grossly intact. ABSENT: mo tor sensory deficit Psychiatric exam: PRESENT: appropriate affect, normal mood. ABSENT: homicidal ideation, suicidal ideation Skin exam: PRESENT: dry, intact, warm. ABSENT: cyanosis, rash Results Laboratory Results: 10/15/19 05:19 10/15/19 05:19 10/14/19 10/14/19 10/14/19 16:45 16:45 16:45 WBC 5.7 RBC 3.84 Hgb 11.3 L Hct 33.9 L MCV 88 MCH 29.3 MCHC 33.2 RDW 16.0 H Plt Count 229 Seg Neutrophils % 73.1 VBG pH VBG pCO2 VBG HCO3 VBG Base Excess Sodium 138.9 Potassium 4.0 Chloride 99 Carbon Dioxide 32 H Anion Gap 8 BUN 53 H Creatinine 1.90 H Est GFR ( Amer) 32 L Glucose 164 H Calcium 9.1 Magnesium 2.6 H Total Bilirubin 1.2 AST 33 Alkaline Phosphatase 151 H Total Protein 6.9 Albumin 3.6 Triglycerides Cholesterol LDL Cholesterol Direct VLDL Cholesterol HDL Cholesterol TSH Free T3 pg/mL Urine Color Urine Appearance Urine pH Ur Specific [place] Urine Protein Urine Glucose (UA) Urine Ketones Urine Blood Urine Nitrite Ur Leukocyte Esterase Urine WBC (Auto) Urine RBC (Auto) 10/14/19 10/14/19 10/14/19 16:45 20:21 22:56 WBC RBC Hgb Hct MCV MCH MCHC RDW Plt Count Seg Neutrophils % VBG pH VBG pCO2 VBG HCO3 VBG Base Excess Sodium 136.6 L Potassium 3.8 Chloride 100 Carbon Dioxide 27 Anion Gap 10 BUN 56 H Creatinine 1.84 H Est GFR ( Amer) 34 L Glucose 242 H Calcium 8.9 Magnesium Total Bilirubin AST Alkaline Phosphatase Total Protein Albumin Triglycerides Cholesterol LDL Cholesterol Direct VLDL Cholesterol HDL Cholesterol TSH Free T3 pg/mL 3.56 Urine Color STRAW Urine Appearance CLEAR Urine pH 7.0 Ur Specific [place] 1.006 Urine Protein NEGATIVE Urine Glucose (UA) NEGATIVE Urine Ketones NEGATIVE Urine Blood NEGATIVE Urine Nitrite NEGATIVE Ur Leukocyte Esterase NEGATIVE Urine WBC (Auto) 1 Urine RBC (Auto) 1 10/15/19 10/15/19 10/15/19 05:19 05:19 05:19 WBC 4.8 RBC 3.39 L Hgb 9.8 L Hct 29.6 L MCV 88 MCH 29.0 MCHC 33.1 RDW 16.3 H Plt Count 198 Seg Neutrophils % VBG pH VBG pCO2 VBG HCO3 VBG Base Excess Sodium 136.6 L Potassium 3.6 Chloride 100 Carbon Dioxide 31 H Anion Gap 6 BUN 54 H Creatinine 1.82 H Est GFR ( Amer) 34 L Glucose 154 H Calcium 8.8 Magnesium 2.2 Total Bilirubin AST Alkaline Phosphatase Total Protein Albumin Triglycerides 51 Cholesterol 84.13 LDL Cholesterol Direct 50 VLDL Cholesterol 10.0 HDL Cholesterol 24 L TSH 1.33 Free T3 pg/mL Urine Color Urine Appearance Urine pH Ur Specific [place] Urine Protein Urine Glucose (UA) Urine Ketones Urine Blood Urine Nitrite Ur Leukocyte Esterase Urine WBC (Auto) Urine RBC (Auto) 10/15/19 05:19 WBC RBC Hgb Hct MCV MCH MCHC RDW Plt Count Seg Neutrophils % VBG pH 7.48 H VBG pCO2 41.7 VBG HCO3 30.0 VBG Base Excess 5.9 Sodium Potassium Chloride Carbon Dioxide Anion Gap BUN Creatinine Est GFR ( Amer) Glucose Calcium Magnesium Total Bilirubin AST Alkaline Phosphatase Total Protein Albumin Triglycerides Cholesterol LDL Cholesterol Direct VLDL Cholesterol HDL Cholesterol TSH Free T3 pg/mL Urine Color Urine Appearance Urine pH Ur Specific [place] Urine Protein Urine Glucose (UA) Urine Ketones Urine Blood Urine Nitrite Ur Leukocyte Esterase Urine WBC (Auto) Urine RBC (Auto) 10/14/19 10/14/19 10/14/19 16:45 22:56 22:56 Creatine Kinase 31 CK-MB (CK-2) 0.28 Troponin I 0.014 0.015 NT-Pro-B Natriuret Pep [id number] H 10/15/19 10/15/19 10/15/19 05:19 05:19 10:53 Creatine Kinase 28 L 29 L CK-MB (CK-2) 0.25 Troponin I 0.017 NT-Pro-B Natriuret Pep 10/15/19 10:53 Creatine Kinase CK-MB (CK-2) 0.29 Troponin I 0.012 NT-Pro-B Natriuret Pep Impressions: Chest X-Ray 10/14/19 16:29 IMPRESSION: CARDIAC ENLARGEMENT. VASCULAR CONGESTION. Assessment and Plan - Diagnosis (1) Acute on chronic systolic congestive heart failure Is this a current diagnosis for this admission?: Yes Plan: Patient is admitted IMCU on continuous cardiac telemetry. She received IV Bumetanide and p.o. metolazone while in the ED. She was then placed on Nitro paste and Lasix gtt at 20mg/hr. Have discontinued Furosemide gtt, Nitro paste, and Cozaar. proBNP elevated to 36k Echocardiogram pending. Lipid panel acceptable. Cardiology is consulted; appreciate Dr. Hartmann's recommendations. Her home medication regiment of Toprol and isosorbide are continued. Start Entresto. Continue to diurese with IV furosemide 20 mg every 8 hours. Cardiac diet. Daily weights, strict I&O's. (2) Hypertension Qualifiers: Hypertension type: essential hypertension Qualified Code(s): I10 - Essential (primary) hypertension Is this a current diagnosis for this admission?: Yes Plan: Uncontrolled; 140s/70s I have resumed the patient's home medication regiment of Toprol and isosorbide. Stop Cozaar and start Entresto per cardiology's recommendations. Continue to diurese with IV furosemide. IV hydralazine as needed for blood pressure control. Cardiac diet. (3) CKD (chronic kidney disease) Is this a current diagnosis for this admission?: Yes Plan: Patient Dors history of CKD 3. Creatinine and BUN relatively stable at 1.82/54. We will optimize cardiac output. Avoid nephrotoxic medications as able; renally dosed where appropriate. Follow-up chemistries. (4) Morbid obesity with BMI of 40.0-44.9, adult Is this a current diagnosis for this admission?: Yes Plan: Dietary discretion and lifestyle modification are encouraged. Cardiac diet. (5) Diabetes Qualifiers: Diabetes mellitus type: type 2 Diabetes mellitus correction insulin use: without correction use Chronic kidney disease stage: stage 3 (moderate) Is this a current diagnosis for this admission?: Yes Plan: A1c is 7.8%. Start on metformin 500 mg twice daily. Patient is placed on a consistent carb diet/cardiac. Accu-Cheks before meals and at bedtime with Humalog for sliding scale coverage. Hypoglycemia protocol in place. Registered dietitian ell tutor consulted. - Time Time Spent with patient: 35 or more minutes Medications reviewed and adjusted accordingly: Yes Anticipated discharge: Home Within: within 48 hours
[2019-10-15] MEDS ORDERED: FUROSEMIDE INJ/PF 20 MG/2 ML SDV IV ONE (14:00)
[2019-10-15] MEDS: FUROSEMIDE INJ/PF 20 MG/2 ML SDV IV SCH ×2 (14:36→21:41)
[2019-10-15] MEDS: ISOSORBIDE DINITRATE 5 MG TABLET PO SCH ×2 (14:37→21:40)
[2019-10-15] MEDS ORDERED: METFORMIN HCL 500 MG TABLET PO SCH (16:00)
[2019-10-15] MEDS: METFORMIN HCL 500 MG TABLET PO SCH (18:02)
[2019-10-15] MEDS: SACUBITRIL/VALSARTAN 49 MG/51 MG TABLET PO SCH (18:02)
[2019-10-15] MEDS: AMIODARONE HCL 200 MG TABLET PO SCH (21:40)
[2019-10-16 05:23] LABS: HEMATOCRIT 31.7 % (36.0-47.0); HEMOGLOBIN 10.5 g/dL (12.0-15.5); MEAN CORPUSCULAR HEMOGLOBIN 28.6 pg (27.0-33.4); MEAN CORPUSCULAR HGB CONC 33.1 g/dL (32.0-36.0); MEAN CORPUSCULAR VOLUME 86 fl (80-97); PLATELET COUNT 195 10^3/uL (150-450); RED BLOOD COUNT 3.67 10^6/uL (3.72-5.28); RED CELL DISTRIBUTION WIDTH 16.1 % (11.5-14.0); WHITE BLOOD COUNT 5.1 10^3/uL (4.0-10.5)
[2019-10-16 05:41] LABS: ANION GAP 8 (5-19); BLOOD UREA NITROGEN 54 mg/dL (7-20); CALCIUM 8.8 mg/dL (8.4-10.2); CARBON DIOXIDE 31 mmol/L (22-30); CHLORIDE 97 mmol/L (98-107); GLUCOSE 159 mg/dL (75-110); POTASSIUM 3.6 mmol/L (3.6-5.0)
[2019-10-16] MEDS: ISOSORBIDE DINITRATE 5 MG TABLET PO SCH ×3 (07:01→21:26)
[2019-10-16] MEDS: PANTOPRAZOLE SODIUM 40 MG TABLET.DR PO SCH (07:01)
[2019-10-16] MEDS: FUROSEMIDE INJ/PF 20 MG/2 ML SDV IV SCH ×3 (07:01→21:25)
--- NOTE | 2019-10-16 10:09 | PDOC PROGRESS REPORT ---
Subjective Progress Note for:: 10/16/19 Subjective:: JULITO FRY is a 64 year old female, life long non-smoker, with history of MVR with a bioprosthetic valve secondary to severe MR, atrial fibrillation s/p ablation in April 2019 at [facility], ICD in place, HTN, DM, CKD, HOWARD, COPD and HFrEF with an EF of 15% on TTE in November of 2018 per her report and suspected to be secondary to a non-ischemic etiology as the patient stated that she had LHC without coronary interventions and no CABG who presents to the emergency room with a one-week history of lower extremity edema. She admits to the constant gradual development of bilateral lower extremity swelling over the last week, accompanied by generalized weakness associated with progressively worsening dyspnea on exertion and a 20 pound weight gain as well as LE edema. She had been treated with lasix since admission and feels slightly better this morning. She specifically denies CP, palpitations, dizziness, lightheadedness, syncope and presyncope. Her cardiac troponin had been negative and her BNP is elevated at 36K. Her telemetry shows A-V pacing. 10/16/2019: The patient had an uneventful night and feels better today. Her fluid balance is -2.5 L. Unfortunately no records have been received yet [place] [facility] [place] She denies ischemic symptoms. Physical exam on 10/16/2019: GENERAL: Pleasant and conversational. Morbidly obese. Oriented x3 with normal mood. Not in acute distress. Well groomed and well developed. HEENT: Normocephalic, atraumatic. Pupils equal. Sclerae anicteric. Oropharynx moist. NECK: Difficult to evaluate for JVD given her body habitus. No carotid bruits. LUNGS: Clear to auscultation bilaterally. Normal respiratory effort without the use of accessory muscles or intercostal retractions. CARDIOVASCULAR: Regular rate and rhythm, normal S1 and S2 without murmurs, rubs, or gallops. PMI not displaced. EXTREMITIES: 3+ pitting edema bilaterally, no cyanosis, no clubbing. Distal pulses are difficult to palpate given her body habitus. SKIN: No lesions or rashes. MUSCULOSKELETAL: No chest tenderness to palpation. NEUROLOGIC: Nonfocal. No gross sensory or motor deficits bilateral upper or lower extremities. Reason For Visit: ACUTE ON CHRONIC SYSTOLIC CONGESTIVE HEART FAILURE Physical Exam Vital Signs: Temp Pulse Resp BP Pulse Ox 97.7 F 60 18 135/59 H 96 10/16/19 03:32 10/16/19 03:32 10/16/19 03:32 10/16/19 03:32 10/16/19 03:32 Intake & Output 10/15/19 10/16/19 10/17/19 06:59 06:59 06:59 Intake Total 979 Output Total 3500 Balance -2521 Weight 101.5 kg 101.1 kg Results Laboratory Results: 10/16/19 04:56 10/16/19 04:56 10/16/19 10/16/19 04:56 04:56 WBC 5.1 RBC 3.67 L Hgb 10.5 L Hct 31.7 L MCV 86 MCH 28.6 MCHC 33.1 RDW 16.1 H Plt Count 195 Sodium 135.9 L Potassium 3.6 Chloride 97 L Carbon Dioxide 31 H Anion Gap 8 BUN 54 H Creatinine 1.97 H Est GFR ( Amer) 31 L Glucose 159 H Calcium 8.8 Magnesium 2.0 10/14/19 10/14/19 10/14/19 16:45 22:56 22:56 Creatine Kinase 31 CK-MB (CK-2) 0.28 Troponin I 0.014 0.015 NT-Pro-B Natriuret Pep 94944 H 10/15/19 10/15/19 10/15/19 05:19 05:19 10:53 Creatine Kinase 28 L 29 L CK-MB (CK-2) 0.25 Troponin I 0.017 NT-Pro-B Natriuret Pep 10/15/19 10:53 Creatine Kinase CK-MB (CK-2) 0.29 Troponin I 0.012 NT-Pro-B Natriuret Pep Impressions: Chest X-Ray 10/14/19 16:29 IMPRESSION: CARDIAC ENLARGEMENT. VASCULAR CONGESTION. 10/16/19 04:56 10/16/19 04:56 MCV 86 fl (80-97) 10/16/19 04:56 MCH 28.6 pg (27.0-33.4) 10/16/19 04:56 MCHC 33.1 g/dL (32.0-36.0) 10/16/19 04:56 RDW 16.1 % (11.5-14.0) H 10/16/19 04:56 Seg Neutrophils % 73.1 % (42-78) 10/14/19 16:45 VBG pH 7.48 (7.30-7.42) H 10/15/19 05:19 VBG pCO2 41.7 mmHg (35-63) 10/15/19 05:19 VBG HCO3 30.0 mmol/L (20-32) 10/15/19 05:19 VBG Base Excess 5.9 mmol/L 10/15/19 05:19 Chloride 97 mmol/L (98-107) L 10/16/19 04:56 Carbon Dioxide 31 mmol/L (22-30) H 10/16/19 04:56 Anion Gap 8 (5-19) 10/16/19 04:56 Est GFR ( Amer) 31 (>60) L 10/16/19 04:56 Glucose 159 mg/dL (75-110) H 10/16/19 04:56 Calcium 8.8 mg/dL (8.4-10.2) 10/16/19 04:56 Magnesium 2.0 mg/dL (1.6-2.3) 10/16/19 04:56 Total Bilirubin 1.2 mg/dL (0.2-1.3) 10/14/19 16:45 AST 33 U/L (14-36) 10/14/19 16:45 Alkaline Phosphatase 151 U/L (38-126) H 10/14/19 16:45 Total Protein 6.9 g/dL (6.3-8.2) 10/14/19 16:45 Albumin 3.6 g/dL (3.5-5.0) 10/14/19 16:45 Triglycerides 51 mg/dL (<150) 10/15/19 05:19 Cholesterol 84.13 mg/dL (0-200) 10/15/19 05:19 LDL Cholesterol Direct 50 mg/dL (<100) 10/15/19 05:19 VLDL Cholesterol 10.0 mg/dL (10-31) 10/15/19 05:19 HDL Cholesterol 24 mg/dL (>40) L 10/15/19 05:19 TSH 1.33 uIU/mL (0.47-4.68) 10/15/19 05:19 Free T3 pg/mL 3.56 pg/mL (2.77-5.27) 10/14/19 16:45 Urine Color STRAW 10/14/19 20:21 Urine Appearance CLEAR 10/14/19 20:21 Urine pH 7.0 (5.0-9.0) 10/14/19 20:21 Ur Specific [place] 1.006 10/14/19 20:21 Urine Protein NEGATIVE mg/dL (NEGATIVE) 10/14/19 20:21 Urine Glucose (UA) NEGATIVE mg/dL (NEGATIVE) 10/14/19 20:21 Urine Ketones NEGATIVE mg/dL (NEGATIVE) 10/14/19 20:21 Urine Blood NEGATIVE (NEGATIVE) 10/14/19 20:21 Urine Nitrite NEGATIVE (NEGATIVE) 10/14/19 20:21 Ur Leukocyte Esterase NEGATIVE (NEGATIVE) 10/14/19 20:21 Urine WBC (Auto) 1 /HPF 10/14/19 20:21 Urine RBC (Auto) 1 /HPF 10/14/19 20:21 10/14/19 10/14/19 10/14/19 16:45 22:56 22:56 Creatine Kinase 31 CK-MB (CK-2) 0.28 Troponin I 0.014 0.015 NT-Pro-B Natriuret Pep 01253 H 10/15/19 10/15/19 10/15/19 05:19 05:19 10:53 Creatine Kinase 28 L 29 L CK-MB (CK-2) 0.25 Troponin I 0.017 NT-Pro-B Natriuret Pep 10/15/19 10:53 Creatine Kinase CK-MB (CK-2) 0.29 Troponin I 0.012 NT-Pro-B Natriuret Pep Current Medication List Generic Name Dose Route Start Last Admin Trade Name Freq PRN Reason Stop Dose Admin Acetaminophen 650 mg 10/14/19 20:49 Tylenol 325 Mg Tablet PO 11/13/19 20:48 Q4HP PRN For headache, pain or fever Al Hydrox/Mg Hydrox/Simethicone 30 ml 10/14/19 20:49 Maalox Plus Susp 30 Udcup PO 11/13/19 20:48 Q6HP PRN HEARTBURN Amiodarone HCl 200 mg 10/15/19 22:00 10/15/19 21:40 Cordarone 200 Mg Tablet PO 11/14/19 21:59 200 mg Q12 RANDY Administration Apixaban 5 mg 10/15/19 10:00 10/15/19 18:02 Eliquis 5 Mg Tablet PO 11/14/19 09:59 5 mg BID RANDY Administration Docusate Sodium 100 mg 10/15/19 10:00 10/15/19 18:02 Colace 100 Mg Capsule PO 11/14/19 09:59 100 mg BID RANDY Administration Furosemide 20 mg 10/15/19 14:00 10/16/19 07:01 Lasix Inj/Pf 20 Mg/2 Ml Sdv IV 11/14/19 13:59 20 mg Q8 RANDY Administration Guaifenesin 200 mg 10/14/19 20:49 Robitussin Syrup 200 Mg/10 Ml Ud Cup PO 11/13/19 20:48 Q4HP PRN COUGH Hydralazine HCl 10 mg 10/15/19 11:53 Apresoline Inj/Pf 20 Mg/1 Ml Sdv IV 11/13/19 20:48 Q4HP PRN Give For Sbp > 160 / Dbp > 100 Isosorbide Dinitrate 5 mg 10/15/19 14:00 10/16/19 07:01 Isordil Titradose 5 Mg Tablet PO 11/14/19 13:59 5 mg Q8 RANDY Administration Magnesium Hydroxide 30 ml 10/14/19 20:49 Milk Of Magnesia 30 Ml Udcup PO 11/13/19 20:48 HSP PRN FOR CONSTIPATION Magnesium Oxide 400 mg 10/16/19 10:00 Mag-Ox 400 Mg Tablet PO 11/15/19 09:59 DAILY RANDY Melatonin 10 mg 10/14/19 20:49 Melatonin 5 Mg Tablet PO 11/13/19 20:48 HSP PRN SLEEP OR INSOMNIA Metformin HCl 500 mg 10/15/19 18:00 10/15/19 18:02 Glucophage 500 Mg Tablet PO 11/14/19 17:59 500 mg DAILY@1800 RANDY Administration Metoprolol Succinate 50 mg 10/16/19 10:00 Toprol Xl 50 Mg Tab.Sr PO 11/15/19 09:59 DAILY RANDY Pantoprazole Sodium 40 mg 10/15/19 06:00 10/16/19 07:[address] Tablet PO 11/14/19 05:59 40 mg Q6AM RANDY Administration Potassium Chloride 20 meq 10/14/19 22:00 10/15/19 21:41 Klor-Con 10 Meq Tablet Er PO 11/13/19 21:59 20 meq Q12 RANDY Administration Promethazine HCl 12.5 mg 10/14/19 20:49 Phenergan Inj 25 Mg/1 Ml Vial IV 11/13/19 20:48 Q4HP PRN UNRESOLVED NAUSEA/VOMITING Sacubitril/Valsartan 1 tab 10/15/19 18:00 10/15/19 18:02 Entresto 49 Mg/51 Mg Tablet PO 11/14/19 17:59 1 tab BID RANDY Administration Sodium Chloride 2.5 ml 10/14/19 22:00 10/16/19 07:01 Saline Flush 2.5 Ml Monoject Prefil Syrin IV 11/13/19 21:59 2.5 ml Q8 RANDY Administration Discontinued Medications Generic Name Dose Route Start Last Admin Trade Name Freq PRN Reason Stop Dose Admin Bumetanide 1 mg 10/14/19 17:28 10/14/19 18:26 Bumex Inj/Pf 1 Mg/4 Ml Sdv IV 10/14/19 17:29 1 mg NOW ONE Administration Clopidogrel Bisulfate 75 mg 10/15/19 10:00 Plavix 75 Mg Tablet PO 11/14/19 09:59 DAILY RANDY Furosemide Confirm 10/15/19 06:41 10/15/19 07:13 Lasix Inj/Pf 100 Mg/10 Ml Sdv Administered 10/15/19 06:42 Not Given Dose 100 mg .ROUTE .STK-MED ONE Furosemide Confirm 10/15/19 06:52 10/15/19 07:13 Lasix Inj/Pf 100 Mg/10 Ml Sdv Administered 10/15/19 06:53 Not Given Dose 100 mg .ROUTE .STK-MED ONE Furosemide 20 mg 10/15/19 14:00 Lasix Inj/Pf 20 Mg/2 Ml Sdv IV 10/15/19 14:01 NOW ONE Heparin Sodium (Porcine) 5,000 unit 10/14/19 22:00 Heparin Inj 5,000 Units/Ml 1 Ml Vial SUBCUT 11/13/19 21:59 Q8 RANDY Hydralazine HCl 20 mg 10/14/19 20:49 Apresoline Inj/Pf 20 Mg/1 Ml Sdv IV 11/13/19 20:48 Q4HP PRN Give For Sbp > 160 / Dbp > 100 Furosemide 250 mg/ Sodium 250 mls @ 20 mls/hr 10/14/19 20:51 10/15/19 09:45 Chloride IV 11/13/19 20:50 Infused CONTINUOUS PRN Infusion THIS MED IS NOT "PRN" 20 MG/HR Lorazepam 1 mg 10/14/19 20:49 Ativan Inj 2 Mg/1 Ml Vial IV 10/21/19 20:48 Q4HP PRN ANXIETY/AGITATION Losartan Potassium 25 mg 10/14/19 22:00 10/15/19 09:45 Cozaar 25 Mg Tablet PO 11/13/19 21:59 25 mg Q12 RANDY Administration Metformin HCl 500 mg 10/15/19 16:00 Glucophage 500 Mg Tablet PO 11/14/19 15:59 BIDACBS RANDY Metolazone 5 mg 10/14/19 17:47 10/14/19 18:36 Zaroxolyn 5 Mg Tablet PO 10/14/19 17:48 5 mg NOW ONE Administration Metolazone Confirm 10/14/19 18:28 10/14/19 18:36 Zaroxolyn 5 Mg Tablet Administered 10/14/19 18:29 Not Given Dose 5 mg .ROUTE .STK-MED ONE Morphine Sulfate 2 mg 10/14/19 20:49 Morphine 10 Mg/Ml Inj IV 10/21/19 20:48 Q1HP PRN Acute Severe Dyspnea Nitroglycerin 1 gm 10/15/19 06:00 10/15/19 06:39 Nitrol 2% Ointment 1gm Packet TP 11/14/19 05:59 1 gm Q6 RANDY Administration Nitroglycerin 1 gm 10/14/19 21:15 10/14/19 22:28 Nitrol 2% Ointment 1gm Packet TP 10/14/19 21:16 1 gm NOW ONE Administration Assessment & Plan - Diagnosis (1) Acute on chronic systolic congestive heart failure Is this a current diagnosis for this admission?: Yes Plan: She feels better this morning and has a negative fluid balance of 2.5 L. Her creatinine is slightly elevated at 1.97 this morning. Recommendations: -Continue with diuresis. -Continue with low sodium diet, <1500mg of sodium daily. -Strict intake and output. -Continue with cardiac telemetry. -At least daily BMP and replace electrolytes as needed. -Echocardiogram today. -Get cardiac and EP records from [facility]. -Daily weight. (2) History of valvular heart disease Is this a current diagnosis for this admission?: Yes Plan: The patient had MVR with a bioprosthesis, she believes it was secondary to severe MR. Recommendations: -Get records from [facility]. -Echocardiogram today. (3) Cardiomyopathy Qualifiers: Cardiomyopathy type: dilated Qualified Code(s): I42.0 - Dilated cardiomyopathy Is this a current diagnosis for this admission?: Yes Plan: Suspected to be non-ischemic as the patient states she had LHC in the past without obstructive CAD. Recommendations: -Get records from [facility]. (4) Hypertension Qualifiers: Hypertension type: essential hypertension Qualified Code(s): I10 - Essential (primary) hypertension Is this a current diagnosis for this admission?: Yes Plan: Her BP is now at her goal of 130/80 or below. Further management per hospitalist team. (5) CKD (chronic kidney disease) Is this a current diagnosis for this admission?: Yes Plan: Will defer further management to hospitalist team. (6) Paroxysmal atrial fibrillation Is this a current diagnosis for this admission?: Yes Plan: Status post ablation in April 2019. She continues to be in sinus rhythm. Recommendations: -Decrease amiodarone to 200 mg daily. -Continue with anticoagulation with Eliquis. -[place] [facility] [place]
[2019-10-16] MEDS: METOPROLOL SUCCINATE 50 MG TAB.SR.24H PO SCH (10:12)
[2019-10-16] MEDS: MAGNESIUM OXIDE 400 MG TABLET PO SCH (10:12)
[2019-10-16] MEDS: AMIODARONE HCL 200 MG TABLET PO SCH (10:12)
[2019-10-16] MEDS: POTASSIUM CHLORIDE 10 MEQ TABLET.ER PO SCH ×2 (10:13→21:26)
[2019-10-16] MEDS: APIXABAN 5 MG TABLET PO SCH ×2 (10:13→18:36)
[2019-10-16] MEDS: DOCUSATE SODIUM 100 MG CAPSULE PO SCH ×2 (10:13→18:37)
[2019-10-16] MEDS: SACUBITRIL/VALSARTAN 49 MG/51 MG TABLET PO SCH ×2 (10:14→18:36)
--- NOTE | 2019-10-16 13:23 | PDOC PROGRESS REPORT ---
Subjective Progress Note for:: 10/16/19 Subjective:: The patient was seen on morning rounds. She was found ambulating in her room, comfortably, on room air. She reports that she is feeling well today. She does complain of continued bilateral lower extremity edema. Denies dyspnea. She denies fever, chest pain, palpitations, recent AICD fire, dyspnea to rest, cough, abdominal pain, nausea and vomiting. She has no further questions or concerns today. Discussed plan with nursing. Reason For Visit: ACUTE ON CHRONIC SYSTOLIC CONGESTIVE HEART FAILURE Physical Exam Vital Signs: Temp Pulse Resp BP Pulse Ox 98.4 F 60 18 133/57 H 94 10/16/19 08:43 10/16/19 09:00 10/16/19 08:43 10/16/19 08:43 10/16/19 08:43 Intake & Output 10/15/19 10/16/19 10/17/19 06:59 06:59 06:59 Intake Total 979 Output Total 3500 Balance -2521 Weight 101.5 kg 101.1 kg General appearance: PRESENT: no acute distress, cooperative, morbidly obese, well-developed, well-nourished Head exam: PRESENT: atraumatic, normocephalic Eye exam: PRESENT: conjunctiva pink, EOMI, PERRLA. ABSENT: scleral icterus Mouth exam: PRESENT: moist, tongue midline Respiratory exam: PRESENT: clear to auscultation dinesh, symmetrical, unlabored. ABSENT: rales, rhonchi, wheezes Cardiovascular exam: PRESENT: RRR, +S1, +S2. ABSENT: diastolic murmur, rubs, systolic murmur Vascular exam: PRESENT: normal capillary refill Extremities exam: PRESENT: full ROM, +1 edema - BLE, nonpitting, other - ? chronic lymphedema vs body habitus creates appearance of edema to BLE. ABSENT: calf tenderness, clubbing, pedal edema Musculoskeletal exam: PRESENT: ambulatory Neurological exam: PRESENT: alert, awake, oriented to person, oriented to place, oriented to time, oriented to situation, CN II-XII grossly intact. ABSENT: motor sensory deficit Psychiatric exam: PRESENT: appropriate affect, normal mood. ABSENT: homicidal ideation, suicidal ideation Skin exam: PRESENT: dry, intact, warm. ABSENT: cyanosis, rash Results Laboratory Results: 10/16/19 04:56 10/16/19 04:56 10/16/19 10/16/19 04:56 04:56 WBC 5.1 RBC 3.67 L Hgb 10.5 L Hct 31.7 L MCV 86 MCH 28.6 MCHC 33.1 RDW 16.1 H Plt Count 195 Sodium 135.9 L Potassium 3.6 Chloride 97 L Carbon Dioxide 31 H Anion Gap 8 BUN 54 H Creatinine 1.97 H Est GFR ( Amer) 31 L Glucose 159 H Calcium 8.8 Magnesium 2.0 10/14/19 10/14/19 10/14/19 16:45 22:56 22:56 Creatine Kinase 31 CK-MB (CK-2) 0.28 Troponin I 0.014 0.015 NT-Pro-B Natriuret Pep 06946 H 10/15/19 10/15/19 10/15/19 05:19 05:19 10:53 Creatine Kinase 28 L 29 L CK-MB (CK-2) 0.25 Troponin I 0.017 NT-Pro-B Natriuret Pep 10/15/19 10:53 Creatine Kinase CK-MB (CK-2) 0.29 Troponin I 0.012 NT-Pro-B Natriuret Pep Impressions: Chest X-Ray 10/14/19 16:29 IMPRESSION: CARDIAC ENLARGEMENT. VASCULAR CONGESTION. Assessment and Plan - Diagnosis (1) Acute on chronic systolic congestive heart failure Is this a current diagnosis for this admission?: Yes Plan: Patient is admitted IM on continuous cardiac telemetry. She received IV Bumetanide and p.o. metolazone while in the ED. She was then placed on Nitro paste and Lasix gtt at 20mg/hr. Have discontinued Furosemide gtt, Nitro paste, and Cozaar. proBNP elevated to 36k Echocardiogram pending. Lipid panel acceptable. Cardiology is consulted; appreciate Dr. Hartmann's recommendations. Her home medication regiment of Toprol and isosorbide are continued. Start Entresto. Continue to diurese with IV furosemide 20 mg every 8 hours. Cardiac diet. Daily weights, strict I&O's. (2) Hypertension Qualifiers: Hypertension type: essential hypertension Qualified Code(s): I10 - Essential (primary) hypertension Is this a current diagnosis for this admission?: Yes Plan: Improved; 133/57 Continue home medication regiment of Toprol and isosorbide. Stop Cozaar and start Entresto per cardiology's recommendations. Continue to diurese with IV furosemide. IV hydralazine as needed for blood pressure control. Cardiac diet. (3) CKD (chronic kidney disease) Is this a current diagnosis for this admission?: Yes Plan: Stable. Patient endorses history of CKD 3. Creatinine and BUN relatively stable at 1.82/54-> 1.97/54 We will optimize cardiac output. Avoid nephrotoxic medications as able; renally dosed where appropriate. Follow-up chemistries. (4) Morbid obesity with BMI of 40.0-44.9, adult Is this a current diagnosis for this admission?: Yes Plan: Dietary discretion and lifestyle modification are encouraged. Cardiac diet. (5) Diabetes Qualifiers: Diabetes mellitus type: type 2 Diabetes mellitus nursing home insulin use: without nursing home use Chronic kidney disease stage: stage 3 (moderate) Is this a current diagnosis for this admission?: Yes Plan: A1c is 7.8%. Start on metformin 500 mg twice daily. Patient is placed on a consistent carb diet/cardiac. Accu-Cheks before meals and at bedtime with Humalog for sliding scale coverage. Hypoglycemia protocol in place. Registered dietitian ict educator consulted. (6) Paroxysmal atrial fibrillation Is this a current diagnosis for this admission?: Yes Plan: Ablation in April 2019. Currently sinus rhythm. Monitor on telemetry Amiodarone decreased to 200 mg daily per Cardiology's recommendation Continue Eliquis. - Time Time Spent with patient: 15-24 minutes Medications reviewed and adjusted accordingly: Yes Anticipated discharge: Home Within: within 24 hours
[2019-10-16] MEDS: METFORMIN HCL 500 MG TABLET PO SCH (18:37)
[2019-10-17] MEDS: ISOSORBIDE DINITRATE 5 MG TABLET PO SCH ×3 (05:25→22:27)
[2019-10-17] MEDS: PANTOPRAZOLE SODIUM 40 MG TABLET.DR PO SCH (05:29)
[2019-10-17] MEDS: FUROSEMIDE INJ/PF 20 MG/2 ML SDV IV SCH (05:30)
[2019-10-17 07:00] LABS: HEMATOCRIT 34.3 % (36.0-47.0); HEMOGLOBIN 11.3 g/dL (12.0-15.5); MEAN CORPUSCULAR HEMOGLOBIN 28.7 pg (27.0-33.4); MEAN CORPUSCULAR HGB CONC 32.9 g/dL (32.0-36.0); MEAN CORPUSCULAR VOLUME 87 fl (80-97); PLATELET COUNT 247 10^3/uL (150-450); RED BLOOD COUNT 3.93 10^6/uL (3.72-5.28); RED CELL DISTRIBUTION WIDTH 16.2 % (11.5-14.0); WHITE BLOOD COUNT 6.1 10^3/uL (4.0-10.5)
[2019-10-17 07:28] LABS: ANION GAP 6 (5-19); BLOOD UREA NITROGEN 50 mg/dL (7-20); CALCIUM 8.9 mg/dL (8.4-10.2); CARBON DIOXIDE 34 mmol/L (22-30); CHLORIDE 95 mmol/L (98-107); GLUCOSE 127 mg/dL (75-110)
--- NOTE | 2019-10-17 10:02 | PDOC PROGRESS REPORT ---
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 She admits to the constant gradual development of bilateral lower extremity swelling over the last week, accompanied by generalized weakness associated with progressively worsening dyspnea on exertion and a 20 pound weight gain as well as LE edema. She had been treated with lasix since admission and feels slightly better this morning. She specifically denies CP, palpitations, dizziness, lightheadedness, syncope and presyncope. Her cardiac troponin had been negative and her BNP is elevated at 36K. Her telemetry shows A-V pacing. 10/17/2019: The patient had an uneventful night and feels much better today. Her fluid balance is now -5.1 L. Unfortunately no records have been received yet from [facility]. She denies ischemic symptoms. Her proBNP is down to 17,900 and her creatinine went up to 2.27. Physical exam on 10/17/2019: GENERAL: Pleasant and conversational. Morbidly obese. Oriented x3 with normal mood. Not in acute distress. Well groomed and well developed. HEENT: Normocephalic, atraumatic. Pupils equal. Sclerae anicteric. Oropharynx moist. NECK: Difficult to evaluate for JVD given her body habitus. No carotid bruits. LUNGS: Clear to auscultation bilaterally. Normal respiratory effort without the use of accessory muscles or intercostal retractions. CARDIOVASCULAR: Regular rate and rhythm, normal S1 and S2 without murmurs, rubs, or gallops. PMI not displaced. EXTREMITIES: 1-2+ pitting edema bilaterally, no cyanosis, no clubbing. Distal pulses are difficult to palpate given her body habitus. SKIN: No lesions or rashes. MUSCULOSKELETAL: No chest tenderness to palpation. NEUROLOGIC: Nonfocal. No gross sensory or motor deficits bilateral upper or lower extremities. Reason For Visit: ACUTE ON CHRONIC SYSTOLIC CONGESTIVE HEART FAILURE Physical Exam Vital Signs: Temp Pulse Resp BP Pulse Ox 98.8 F 63 17 153/62 H 96 10/17/19 07:47 10/17/19 07:47 10/17/19 07:47 10/17/19 07:47 10/17/19 07:47 Intake & Output 10/16/19 10/17/19 10/18/19 06:59 06:59 06:59 Intake Total 979 1040 Output Total 3500 3700 Balance -2521 -9290 Weight 101.1 kg 98.1 kg Results Laboratory Results: 10/17/19 06:27 10/17/19 06:27 10/17/19 10/17/19 06:27 06:27 WBC 6.1 RBC 3.93 Hgb 11.3 L Hct 34.3 L MCV 87 MCH 28.7 MCHC 32.9 RDW 16.2 H Plt Count 247 Sodium 135.3 L Potassium 4.0 Chloride 95 L Carbon Dioxide 34 H Anion Gap 6 BUN 50 H Creatinine 2.27 H Est GFR ( Amer) 26 L Glucose 127 H Calcium 8.9 Magnesium 2.0 10/14/19 10/14/19 10/14/19 16:45 22:56 22:56 Creatine Kinase 31 CK-MB (CK-2) 0.28 Troponin I 0.014 0.015 NT-Pro-B Natriuret Pep 19762 H 10/15/19 10/15/19 10/15/19 05:19 05:19 10:53 Creatine Kinase 28 L 29 L CK-MB (CK-2) 0.25 Troponin I 0.017 NT-Pro-B Natriuret Pep 10/15/19 10/17/19 10:53 06:27 Creatine Kinase CK-MB (CK-2) 0.29 Troponin I 0.012 NT-Pro-B Natriuret Pep 11652 H Impressions: Chest X-Ray 10/14/19 16:29 IMPRESSION: CARDIAC ENLARGEMENT. VASCULAR CONGESTION. 10/17/19 06:27 10/17/19 06:27 MCV 87 fl (80-97) 10/17/19 06:27 MCH 28.7 pg (27.0-33.4) 10/17/19 06:27 MCHC 32.9 g/dL (32.0-36.0) 10/17/19 06:27 RDW 16.2 % (11.5-14.0) H 10/17/19 06:27 Seg Neutrophils % 73.1 % (42-78) 10/14/19 16:45 VBG pH 7.48 (7.30-7.42) H 10/15/19 05:19 VBG pCO2 41.7 mmHg (35-63) 10/15/19 05:19 VBG HCO3 30.0 mmol/L (20-32) 10/15/19 05:19 VBG Base Excess 5.9 mmol/L 10/15/19 05:19 Chloride 95 mmol/L (98-107) L 10/17/19 06:27 Carbon Dioxide 34 mmol/L (22-30) H 10/17/19 06:27 Anion Gap 6 (5-19) 10/17/19 06:27 Est GFR ( Amer) 26 (>60) L 10/17/19 06:27 Glucose 127 mg/dL (75-110) H 10/17/19 06:27 Calcium 8.9 mg/dL (8.4-10.2) 10/17/19 06:27 Magnesium 2.0 mg/dL (1.6-2.3) 10/17/19 06:27 Total Bilirubin 1.2 mg/dL (0.2-1.3) 10/14/19 16:45 AST 33 U/L (14-36) 10/14/19 16:45 Alkaline Phosphatase 151 U/L (38-126) H 10/14/19 16:45 Total Protein 6.9 g/dL (6.3-8.2) 10/14/19 16:45 Albumin 3.6 g/dL (3.5-5.0) 10/14/19 16:45 Triglycerides 51 mg/dL (<150) 10/15/19 05:19 Cholesterol 84.13 mg/dL (0-200) 10/15/19 05:19 LDL Cholesterol Direct 50 mg/dL (<100) 10/15/19 05:19 VLDL Cholesterol 10.0 mg/dL (10-31) 10/15/19 05:19 HDL Cholesterol 24 mg/dL (>40) L 10/15/19 05:19 TSH 1.33 uIU/mL (0.47-4.68) 10/15/19 05:19 Free T3 pg/mL 3.56 pg/mL (2.77-5.27) 10/14/19 16:45 Urine Color STRAW 10/14/19 20:21 Urine Appearance CLEAR 10/14/19 20:21 Urine pH 7.0 (5.0-9.0) 10/14/19 20:21 Ur Specific [place] 1.006 10/14/19 20:21 Urine Protein NEGATIVE mg/dL (NEGATIVE) 10/14/19 20:21 Urine Glucose (UA) NEGATIVE mg/dL (NEGATIVE) 10/14/19 20:21 Urine Ketones NEGATIVE mg/dL (NEGATIVE) 10/14/19 20:21 Urine Blood NEGATIVE (NEGATIVE) 10/14/19 20:21 Urine Nitrite NEGATIVE (NEGATIVE) 10/14/19 20:21 Ur Leukocyte Esterase NEGATIVE (NEGATIVE) 10/14/19 20:21 Urine WBC (Auto) 1 /HPF 10/14/19 20:21 Urine RBC (Auto) 1 /HPF 10/14/19 20:21 10/14/19 10/14/19 10/14/19 16:45 22:56 22:56 Creatine Kinase 31 CK-MB (CK-2) 0.28 Troponin I 0.014 0.015 NT-Pro-B Natriuret Pep 78734 H 10/15/19 10/15/19 10/15/19 05:19 05:19 10:53 Creatine Kinase 28 L 29 L CK-MB (CK-2) 0.25 Troponin I 0.017 NT-Pro-B Natriuret Pep 10/15/19 10/17/19 10:53 06:27 Creatine Kinase CK-MB (CK-2) 0.29 Troponin I 0.012 NT-Pro-B Natriuret Pep 55406 H Current Medication List Generic Name Dose Route Start Last Admin Trade Name Freq PRN Reason Stop Dose Admin Acetaminophen 650 mg 10/14/19 20:49 Tylenol 325 Mg Tablet PO 11/13/19 20:48 Q4HP PRN For headache, pain or fever Al Hydrox/Mg Hydrox/Simethicone 30 ml 10/14/19 20:49 Maalox Plus Susp 30 Udcup PO 11/13/19 20:48 Q6HP PRN HEARTBURN Amiodarone HCl 200 mg 10/17/19 10:00 Cordarone 200 Mg Tablet PO 11/16/19 09:59 DAILY RANDY Apixaban 5 mg 10/15/19 10:00 10/16/19 18:36 Eliquis 5 Mg Tablet PO 11/14/19 09:59 5 mg BID RANDY Administration Docusate Sodium 100 mg 10/15/19 10:00 10/16/19 18:37 Colace 100 Mg Capsule PO 11/14/19 09:59 100 mg BID RANDY Administration Furosemide 20 mg 10/15/19 14:00 10/17/19 05:30 Lasix Inj/Pf 20 Mg/2 Ml Sdv IV 11/14/19 13:59 20 mg Q8 RANDY Administration Guaifenesin 200 mg 10/14/19 20:49 Robitussin Syrup 200 Mg/10 Ml Ud Cup PO 11/13/19 20:48 Q4HP PRN COUGH Hydralazine HCl 10 mg 10/15/19 11:53 Apresoline Inj/Pf 20 Mg/1 Ml Sdv IV 11/13/19 20:48 Q4HP PRN Give For Sbp > 160 / Dbp > 100 Isosorbide Dinitrate 5 mg 10/15/19 14:00 10/17/19 05:25 Isordil Titradose 5 Mg Tablet PO 11/14/19 13:59 5 mg Q8 RANDY Administration Magnesium Hydroxide 30 ml 10/14/19 20:49 Milk Of Magnesia 30 Ml Udcup PO 11/13/19 20:48 HSP PRN FOR CONSTIPATION Magnesium Oxide 400 mg 10/16/19 10:00 10/16/19 10:12 Mag-Ox 400 Mg Tablet PO 11/15/19 09:59 400 mg DAILY RANDY Administration Melatonin 10 mg 10/14/19 20:49 Melatonin 5 Mg Tablet PO 11/13/19 20:48 HSP PRN SLEEP OR INSOMNIA Metformin HCl 500 mg 10/15/19 18:00 10/16/19 18:37 Glucophage 500 Mg Tablet PO 11/14/19 17:59 500 mg DAILY@1800 RANDY Administration Metoprolol Succinate 50 mg 10/16/19 10:00 10/16/19 10:12 Toprol Xl 50 Mg Tab.Sr PO 11/15/19 09:59 50 mg DAILY RANDY Administration Pantoprazole Sodium 40 mg 10/15/19 06:00 10/17/19 05:[address] Tablet PO 11/14/19 05:59 40 mg Q6AM RANDY Administration Potassium Chloride 20 meq 10/14/19 22:00 10/16/19 21:26 Klor-Con 10 Meq Tablet Er PO 11/13/19 21:59 20 meq Q12 RANDY Administration Promethazine HCl 12.5 mg 10/16/19 11:00 Phenergan Inj 25 Mg/1 Ml Vial IV 11/13/19 20:48 Q4HP PRN UNRESOLVED NAUSEA/VOMITING Sacubitril/Valsartan 1 tab 10/15/19 18:00 10/16/19 18:36 Entresto 49 Mg/51 Mg Tablet PO 11/14/19 17:59 1 tab BID RANDY Administration Sodium Chloride 2.5 ml 10/14/19 22:00 10/17/19 05:30 Saline Flush 2.5 Ml Monoject Prefil Syrin IV 11/13/19 21:59 2.5 ml Q8 RANDY Administration Discontinued Medications Generic Name Dose Route Start Last Admin Trade Name Freq PRN Reason Stop Dose Admin Amiodarone HCl 200 mg 10/15/19 22:00 10/16/19 10:12 Cordarone 200 Mg Tablet PO 11/14/19 21:59 200 mg Q12 RANDY Administration Bumetanide 1 mg 10/14/19 17:28 10/14/19 18:26 Bumex Inj/Pf 1 Mg/4 Ml Sdv IV 10/14/19 17:29 1 mg NOW ONE Administration Clopidogrel Bisulfate 75 mg 10/15/19 10:00 Plavix 75 Mg Tablet PO 11/14/19 09:59 DAILY RANDY Furosemide Confirm 10/15/19 06:41 10/15/19 07:13 Lasix Inj/Pf 100 Mg/10 Ml Sdv Administered 10/15/19 06:42 Not Given Dose 100 mg .ROUTE .STK-MED ONE Furosemide Confirm 10/15/19 06:52 10/15/19 07:13 Lasix Inj/Pf 100 Mg/10 Ml Sdv Administered 10/15/19 06:53 Not Given Dose 100 mg .ROUTE .STK-MED ONE Furosemide 20 mg 10/15/19 14:00 Lasix Inj/Pf 20 Mg/2 Ml Sdv IV 10/15/19 14:01 NOW ONE Heparin Sodium (Porcine) 5,000 unit 10/14/19 22:00 Heparin Inj 5,000 Units/Ml 1 Ml Vial SUBCUT 11/13/19 21:59 Q8 RANDY Hydralazine HCl 20 mg 10/14/19 20:49 Apresoline Inj/Pf 20 Mg/1 Ml Sdv IV 11/13/19 20:48 Q4HP PRN Give For Sbp > 160 / Dbp > 100 Furosemide 250 mg/ Sodium 250 mls @ 20 mls/hr 10/14/19 20:51 10/15/19 09:45 Chloride IV 11/13/19 20:50 Infused CONTINUOUS PRN Infusion THIS MED IS NOT "PRN" 20 MG/HR Lorazepam 1 mg 10/14/19 20:49 Ativan Inj 2 Mg/1 Ml Vial IV 10/21/19 20:48 Q4HP PRN ANXIETY/AGITATION Losartan Potassium 25 mg 10/14/19 22:00 10/15/19 09:45 Cozaar 25 Mg Tablet PO 11/13/19 21:59 25 mg Q12 RANDY Administration Metformin HCl 500 mg 10/15/19 16:00 Glucophage 500 Mg Tablet PO 11/14/19 15:59 BIDACBS RANDY Metolazone 5 mg 10/14/19 17:47 10/14/19 18:36 Zaroxolyn 5 Mg Tablet PO 10/14/19 17:48 5 mg NOW ONE Administration Metolazone Confirm 10/14/19 18:28 10/14/19 18:36 Zaroxolyn 5 Mg Tablet Administered 10/14/19 18:29 Not Given Dose 5 mg .ROUTE .STK-MED ONE Morphine Sulfate 2 mg 10/14/19 20:49 Morphine 10 Mg/Ml Inj IV 10/21/19 20:48 Q1HP PRN Acute Severe Dyspnea Nitroglycerin 1 gm 10/15/19 06:00 10/15/19 06:39 Nitrol 2% Ointment 1gm Packet TP 11/14/19 05:59 1 gm Q6 RANDY Administration Nitroglycerin 1 gm 10/14/19 21:15 10/14/19 22:28 Nitrol 2% Ointment 1gm Packet TP 10/14/19 21:16 1 gm NOW ONE Administration Promethazine HCl 12.5 mg 10/14/19 20:49 Phenergan Inj 25 Mg/1 Ml Vial IV 11/13/19 20:48 Q4HP PRN UNRESOLVED NAUSEA/VOMITING Assessment & Plan - Diagnosis (1) Acute on chronic systolic congestive heart failure Is this a current diagnosis for this admission?: Yes Plan: She feels much better this morning and has a negative fluid balance of -5.1 L associated with improvement in her lower extremity edema and an elevation in her creatinine. Recommendations: -Transition IV Lasix to p.o. dosing. -Continue with low sodium diet, <1500mg of sodium daily. -Strict intake and output. -Continue with cardiac telemetry. -Echocardiogram has been ordered however has not been done yet. -Get cardiac and EP records from [facility]. -Cardiology does not have further recommendations therefore we will sign off the case for now, please reconsult if necessary. (2) History of valvular heart disease Is this a current diagnosis for this admission?: Yes Plan: The patient had MVR with a bioprosthesis, she believes it was secondary to severe MR. Recommendations: -Get records from [facility]. -Echocardiogram has been ordered. (3) Cardiomyopathy Qualifiers: Cardiomyopathy type: dilated Qualified Code(s): I42.0 - Dilated cardiomyopathy Is this a current diagnosis for this admission?: Yes Plan: Suspected to be non-ischemic as the patient states she had LHC in the past without obstructive CAD. Recommendations: -Get records from [facility]. (4) Hypertension Qualifiers: Hypertension type: essential hypertension Qualified Code(s): I10 - Essential (primary) hypertension Is this a current diagnosis for this admission?: Yes (5) CKD (chronic kidney disease) Is this a current diagnosis for this admission?: Yes Plan: Will defer further management to hospitalist team. (6) Paroxysmal atrial fibrillation Is this a current diagnosis for this admission?: Yes Plan: Status post ablation in April 2019. She continues to be in sinus rhythm. Recommendations: -Continue with amiodarone to 200 mg daily. -Continue with anticoagulation with Eliquis. -Get records from [facility].
[2019-10-17] MEDS: POTASSIUM CHLORIDE 10 MEQ TABLET.ER PO SCH ×2 (11:05→22:26)
[2019-10-17] MEDS: MAGNESIUM OXIDE 400 MG TABLET PO SCH (11:06)
[2019-10-17] MEDS: SACUBITRIL/VALSARTAN 49 MG/51 MG TABLET PO SCH ×2 (11:06→19:52)
[2019-10-17] MEDS: DOCUSATE SODIUM 100 MG CAPSULE PO SCH ×2 (11:06→19:52)
[2019-10-17] MEDS: AMIODARONE HCL 200 MG TABLET PO SCH (11:07)
[2019-10-17] MEDS: APIXABAN 5 MG TABLET PO SCH ×2 (11:07→19:52)
[2019-10-17] MEDS: METOPROLOL SUCCINATE 50 MG TAB.SR.24H PO SCH (11:07)
--- NOTE | 2019-10-17 12:25 | XCELERA REPORT ---
[address] [address] Transthoracic Echocardiogram Report Name: JULITO FRY Age: 64 yrs Gender: Female : 1955 Patient Status: Inpatient Patient Location: [address] [place] [address] Study Date: 10/17/2019 09:37 AM Height: 60 in Weight: 223 lb BSA: 2.0 m2 Procedure: A complete two-dimensional transthoracic echocardiogram was performed (2D, M-mode, spectral and color flow Doppler). The study was technically adequate with some images being suboptimal in quality. Reason For Study: CHF History: History of MVR, atrial fibrillation s/p ablation, right heart ICD, and reduced LV function. Ordering Physician: FAUSTINO HARTMANN Performed By: Soco Ronquillo Interpretation Summary The left ventricle is moderately dilated. Left ventricular systolic function is severely reduced. The Ejection Fraction estimate is 20-25%. Abnormal wall motion consistent with pacemaker activation. There is no thrombus. Device lead noted in the right ventricle. Borderline reduced RV systolic function. Mild to moderate EUGENIE. Mild LAE. Bioprosthetic valve in the mitral position with normal function and gradient. Moderate to severe TR. Severely elevated pulmonary pressures. No prior studies for comparison. MMode/2D Measurements & Calculations RVDd: 3.1 cm LVIDd: 6.2 cm FS: 11.3 % Ao root diam: 3.0 cm IVSd: 0.90 cm LVIDs: 5.5 cm EDV(Teich): LVPWd: 0.89 cm 192.5 ml Ao root area: ESV(Teich): 6.9 cm2 146.3 ml EF(Teich): 24.0 % EDV(MOD-sp4): SV(MOD-sp4): 183.4 ml 71.8 ml ESV(MOD-sp4): 111.6 ml EF(MOD-sp4): 39.1 % Doppler Measurements & Calculations MV E max randolph: MV dec slope: Ao V2 max: LV V1 max P.5 cm/sec 119.7 cm/sec 3.8 mmHg MV A max randolph: 429.2 cm/sec2 Ao max PG: LV V1 max: 62.6 cm/sec MV dec time: 0.38 sec 5.7 mmHg 96.9 cm/sec MV E/A: 2.6 PA V2 max: TR max randolph: 72.7 cm/sec 337.2 cm/sec PA max P.1 mmHg TR max P.9 mmHg Left Ventricle The left ventricle is moderately dilated. Left ventricular systolic function is severely reduced. The Ejection Fraction estimate is 20-25%. Abnormal wall motion consistent with pacemaker activation. There is no thrombus. Right Ventricle The right ventricle is grossly normal size. There is a pacemaker lead in the right ventricle. The right ventricular systolic function is borderline reduced. Atria The right atrium is mild to moderately dilated. The left atrium is mildly dilated. There is no Doppler evidence for an interatrial shunt. Mitral Valve The mitral valve is not well visualized. Mitral valve prolapse cannot be excluded. A vegetation on the mitral valve cannot be excluded. There is no mitral valve stenosis. There is no mitral regurgitation noted. MVR with a bioprosthetic valve secondary to severe MR. Aortic Valve The aortic valve is normal in structure and functions normally. The aortic valve is mildly calcified. There is no aortic valvular vegetation. There is no aortic valve stenosis. No aortic regurgitation is present. Tricuspid Valve The tricuspid valve is not well visualized secondary to technical limitations. ICD noted in right heart. There is a moderate to severe amount of tricuspid regurgitation. Pulmonic Valve The pulmonic valve is not well visualized. There is no pulmonic valvular regurgitation. Great Vessels The inferior vena cava appeared normal and decreased < 50% with respiration (RAP 10-15 mmHg). Effusions There is no pericardial effusion. : FAUSTINO HARTMANN Antonio
--- NOTE | 2019-10-17 16:20 | PDOC PROGRESS REPORT ---
Subjective Progress Note for:: 10/17/19 Subjective:: No adverse events overnight. No new complaints. Vital signs been stable. She is on room air. Eating and drinking without difficulty. She has had good urine output. Reason For Visit: ACUTE ON CHRONIC SYSTOLIC CONGESTIVE HEART FAILURE Physical Exam Vital Signs: Temp Pulse Resp BP Pulse Ox 98.0 F 61 22 H 136/58 H 99 10/17/19 11:50 10/17/19 11:50 10/17/19 11:50 10/17/19 11:50 10/17/19 11:50 Intake & Output 10/16/19 10/17/19 10/18/19 06:59 06:59 06:59 Intake Total 979 1040 Output Total 3500 3700 Balance -2521 -2660 Weight 101.1 kg 98.1 kg General appearance: PRESENT: no acute distress, cooperative, morbidly obese Respiratory exam: PRESENT: clear to auscultation dinesh, symmetrical, unlabored. ABSENT: accessory muscle use, chest wall tenderness, crackles, prolonged expir atory phas, rhonchi, tachypnea, wheezes Cardiovascular exam: PRESENT: RRR, +S1, +S2 Pulses: PRESENT: normal carotid pulses Vascular exam: PRESENT: normal capillary refill GI/Abdominal exam: PRESENT: normal bowel sounds, soft. ABSENT: distended, guarding, rebound, tenderness Extremities exam: PRESENT: pedal edema, +1 edema, other - Chronic lymphedema. ABSENT: clubbing Musculoskeletal exam: PRESENT: normal inspection. ABSENT: deformity Neurological exam: PRESENT: alert, awake, oriented to person, oriented to place, oriented to situation Psychiatric exam: PRESENT: appropriate affect, normal mood Skin exam: PRESENT: dry, warm Results Laboratory Results: 10/17/19 06:27 10/17/19 06:27 10/17/19 10/17/19 06:27 06:27 WBC 6.1 RBC 3.93 Hgb 11.3 L Hct 34.3 L MCV 87 MCH 28.7 MCHC 32.9 RDW 16.2 H Plt Count 247 Sodium 135.3 L Potassium 4.0 Chloride 95 L Carbon Dioxide 34 H Anion Gap 6 BUN 50 H Creatinine 2.27 H Est GFR ( Amer) 26 L Glucose 127 H Calcium 8.9 Magnesium 2.0 10/14/19 10/14/19 10/14/19 16:45 22:56 22:56 Creatine Kinase 31 CK-MB (CK-2) 0.28 Troponin I 0.014 0.015 NT-Pro-B Natriuret Pep 82992 H 10/15/19 10/15/19 10/15/19 05:19 05:19 10:53 Creatine Kinase 28 L 29 L CK-MB (CK-2) 0.25 Troponin I 0.017 NT-Pro-B Natriuret Pep 10/15/19 10/17/19 10:53 06:27 Creatine Kinase CK-MB (CK-2) 0.29 Troponin I 0.012 NT-Pro-B Natriuret Pep 12120 H Impressions: Chest X-Ray 10/14/19 16:29 IMPRESSION: CARDIAC ENLARGEMENT. VASCULAR CONGESTION. Assessment and Plan - Diagnosis (1) Acute on chronic systolic congestive heart failure Is this a current diagnosis for this admission?: Yes Plan: She has a fluid deficit of over 5 L. She is now on room air. She is been medically optimized by cardiology. Her Lasix has been cut back to once a day oral dosing. She is on Entresto. She is on appropriate beta-luciana. (2) Bilateral lower extremity edema Is this a current diagnosis for this admission?: Yes Plan: Some of this is chronic due to her chronic lymphedema (3) CKD (chronic kidney disease) Qualifiers: Chronic kidney disease stage: stage 3 (moderate) Qualified Code(s): N18.3 - Chronic kidney disease, stage 3 (moderate) Is this a current diagnosis for this admission?: Yes Plan: Her creatinine bumped a little bit from her baseline. She was getting IV Lasix 3 times a day. We have stopped that and have put her on to oral Lasix once a day. As long as her creatinine is stable tomorrow she can probably be discharged home. She was on metformin so that has been discontinued. (4) Diabetes Qualifiers: Diabetes mellitus type: type 2 Diabetes mellitus retirement insulin use: without supervisor intermediates use Chronic kidney disease stage: stage 3 (moderate) Is this a current diagnosis for this admission?: Yes Plan: She was on metformin but with her renal failure she should not be taking that, so it is been discontinued. We will probably put her on some low-dose glipizide at discharge. (5) Hypertension Qualifiers: Hypertension type: essential hypertension Qualified Code(s): I10 - Essential (primary) hypertension Is this a current diagnosis for this admission?: Yes Plan: Well-controlled on her current regimen (6) Morbid obesity with BMI of 40.0-44.9, adult Is this a current diagnosis for this admission?: Yes Plan: Dietary discretion and lifestyle modification are encouraged. Cardiac diet. (7) Paroxysmal atrial fibrillation Is this a current diagnosis for this admission?: Yes Plan: Currently in a sinus rhythm - Time Time Spent with patient: 25-34 minutes
[2019-10-18] MEDS: MAG HYDROX/AL HYDROX/SIMETH SUSP 30 ML UDCUP PO PRN ×2 (02:01→02:07)
[2019-10-18] MEDS: PROMETHAZINE HCL INJ 25 MG/1 ML VIAL IV PRN ×2 (02:01→05:42)
[2019-10-18] MEDS: ISOSORBIDE DINITRATE 5 MG TABLET PO SCH ×2 (05:42→14:03)
[2019-10-18] MEDS: PANTOPRAZOLE SODIUM 40 MG TABLET.DR PO SCH (05:42)
[2019-10-18 08:42] LABS: ANION GAP 5 (5-19); BLOOD UREA NITROGEN 53 mg/dL (7-20); CALCIUM 8.9 mg/dL (8.4-10.2); CARBON DIOXIDE 32 mmol/L (22-30); CHLORIDE 99 mmol/L (98-107); GLUCOSE 151 mg/dL (75-110); POTASSIUM 4.4 mmol/L (3.6-5.0)
[2019-10-18] MEDS: AMIODARONE HCL 200 MG TABLET PO SCH (09:11)
[2019-10-18] MEDS: POTASSIUM CHLORIDE 10 MEQ TABLET.ER PO SCH (09:12)
[2019-10-18] MEDS: SACUBITRIL/VALSARTAN 49 MG/51 MG TABLET PO SCH (09:12)
[2019-10-18] MEDS: MAGNESIUM OXIDE 400 MG TABLET PO SCH (09:12)
[2019-10-18] MEDS: DOCUSATE SODIUM 100 MG CAPSULE PO SCH (09:13)
[2019-10-18] MEDS: APIXABAN 5 MG TABLET PO SCH (09:20)
[2019-10-18] MEDS: METOPROLOL SUCCINATE 50 MG TAB.SR.24H PO SCH (09:21)
[2019-10-18] MEDS ORDERED: FUROSEMIDE 20 MG TABLET PO SCH (10:00)
[2019-10-18 12:02] VITALS: BP 111/49
--- NOTE | 2019-10-18 18:40 | PDOC DISCHARGE SUMMARY ---
Impression - Admit/DC Date/PCP Admission Date/Primary Care Provider: 10/14/19 20:03 Discharge Date: 10/18/19 - Discharge Diagnosis (1) Acute on chronic systolic congestive heart failure Is this a current diagnosis for this admission?: Yes (2) Bilateral lower extremity edema Is this a current diagnosis for this admission?: Yes (3) CKD (chronic kidney disease) Is this a current diagnosis for this admission?: Yes (4) Diabetes Is this a current diagnosis for this admission?: Yes (5) Hypertension Is this a current diagnosis for this admission?: Yes (6) Morbid obesity with BMI of 40.0-44.9, adult Is this a current diagnosis for this admission?: Yes (7) Paroxysmal atrial fibrillation Is this a current diagnosis for this admission?: Yes - Additional Information Resuscitation Status: Full Code Discharge Diet: Cardiac, Diabetic Discharge Activity: Activity As Tolerated, Balance Activity w/Rest, Weigh Daily Prescriptions: Sacubitril/Valsartan [Entresto 49 mg/51 mg Tablet] 1 tab PO BID #60 tablet Home Medications: Amiodarone HCl [Cordarone 200 mg Tablet] 200 mg PO Q12 10/15/19 Apixaban [Eliquis 5 mg Tablet] 5 mg PO Q12 10/15/19 Bumetanide [Bumex 1 mg Tablet] 1 mg PO DAILY 10/15/19 Isosorbide Dinitrate [Isordil Titradose 5 mg Tablet] 5 mg PO Q8 10/15/19 Magnesium Oxide [Mag-Ox 400 mg Tablet] 400 mg PO DAILY 10/15/19 Metoprolol Succinate [Toprol Xl 50 mg Tab.sr] 50 mg PO DAILY 10/15/19 Sacubitril/Valsartan [Entresto 49 mg/51 mg Tablet] 1 tab PO BID #60 tablet 10/18/19 History of Present Illiness History of Present Illness: JULITO FRY is a 64 year old female who presents to the emergency room with a one-week history of lower extremity edema. She admits to the constant gradual development of bilateral lower extremity swelling over the last week, accompanied by generalized weakness and associated with progressively worsening dyspnea on exertion and a 20 pound weight gain. She denies other associated or accompanying signs and symptoms. She admits prior similar episodes when she has had "fluid overload". She has a history of severe systolic congestive heart failure and took an additional dose of Bumex yesterday with no improvement in he r lower extremity edema. She denies identification of any aggravating or ameliorating factors for her lower extremity edema. In the emergency room she was found to have early pulmonary edema by chest x-ray and a BNP of 36,000. Her emergency room exam demonstrated pitting edema of the bilateral lower extremities. She was subsequently admitted to the hospital for further evaluation and treatment per the CHF protocol on IMCU. Hospital Course Hospital Course: She responded very well to diuresis and we got about 5 L of fluid off and she had substantial improvement in her symptoms. Her creatinine bumped a little bit above her baseline but we cut back on her diuresis and her creatinine was back down to her baseline today. She was seen in consultation by cardiology who recommended addition of Entresto. Her echocardiogram showed an ejection fraction of 20 to 25% with borderline reduced right ventricular systolic function. She was also noted to have moderate to severe tricuspid regurgitation along with substantially elevated right ventricular systolic pressure consistent with pulmonary hypertension. Her home medications were resumed, with the only addition being Entresto. She is here from out of town, she lives in the [facility] but uses [facility] and so her Entresto prescription was called into a local [facility] that she was able to order picker on her way home from the hospital. Her labs and examination were reassuring and she was discharged in stable condition. She says her metal ceiling hanger is in [place] and she would have no problem arranging a fol low-up with her metal ceiling hanger the day after she gets home when she leaves here early next week. Physical Exam Vital Signs: Temp Pulse Resp BP Pulse Ox 98.6 F 69 18 111/49 L 96 10/18/19 13:54 10/18/19 13:54 10/18/19 13:54 10/18/19 12:00 10/18/19 13:54 Intake & Output 10/17/19 10/18/19 10/19/19 06:59 06:59 06:59 Intake Total 1040 1224 240 Output Total 3700 1100 Balance -2660 124 240 Weight 98.1 kg 97.6 kg General appearance: PRESENT: no acute distress, cooperative, morbidly obese Respiratory exam: PRESENT: clear to auscultation dinesh, symmetrical, unlabored. ABSENT: accessory muscle use, chest wall tenderness, crackles, prolonged expira tory phas, rhonchi, tachypnea, wheezes Cardiovascular exam: PRESENT: RRR, +S1, +S2 Pulses: PRESENT: normal carotid pulses Vascular exam: PRESENT: normal capillary refill GI/Abdominal exam: PRESENT: normal bowel sounds, soft. ABSENT: distended, guarding, rebound, tenderness Extremities exam: PRESENT: Trace pedal edema, trace ankle edema, other - Chronic lymphedema. ABSENT: clubbing Musculoskeletal exam: PRESENT: normal inspection. ABSENT: deformity Neurological exam: PRESENT: alert, awake, oriented to person, oriented to place, oriented to situation Psychiatric exam: PRESENT: appropriate affect, normal mood Skin exam: PRESENT: dry, warm Results Laboratory Results: WBC 6.1 10^3/uL (4.0-10.5) 10/17/19 06:27 RBC 3.93 10^6/uL (3.72-5.28) 10/17/19 06:27 Hgb 11.3 g/dL (12.0-15.5) L 10/17/19 06:27 Hct 34.3 % (36.0-47.0) L 10/17/19 06:27 MCV 87 fl (80-97) 10/17/19 06:27 MCH 28.7 pg (27.0-33.4) 10/17/19 06:27 MCHC 32.9 g/dL (32.0-36.0) 10/17/19 06:27 RDW 16.2 % (11.5-14.0) H 10/17/19 06:27 Plt Count 247 10^3/uL (150-450) 10/17/19 06:27 Lymph % (Auto) 15.5 % (13-45) 10/14/19 16:45 [place] % (Auto) 8.9 % (3-13) 10/14/19 16:45 Eos % (Auto) 1.4 % (0-6) 10/14/19 16:45 Baso % (Auto) 1.1 % (0-2) 10/14/19 16:45 Absolute Neuts (auto) 4.1 10^3/uL (1.7-8.2) 10/14/19 16:45 Absolute Lymphs (auto) 0.9 10^3/uL (0.5-4.7) 10/14/19 16:45 Absolute Monos (auto) 0.5 10^3/uL (0.1-1.4) 10/14/19 16:45 Absolute Eos (auto) 0.1 10^3/uL (0.0-0.6) 10/14/19 16:45 Absolute Basos (auto) 0.1 10^3/uL (0.0-0.2) 10/14/19 16:45 Seg Neutrophils % 73.1 % (42-78) 10/14/19 16:45 VBG pH 7.48 (7.30-7.42) H 10/15/19 05:19 VBG pCO2 41.7 mmHg (35-63) 10/15/19 05:19 VBG HCO3 30.0 mmol/L (20-32) 10/15/19 05:19 VBG Base Excess 5.9 mmol/L 10/15/19 05:19 Sodium 136.1 mmol/L (137-145) L 10/18/19 08:00 Potassium 4.4 mmol/L (3.6-5.0) 10/18/19 08:00 Chloride 99 mmol/L (98-107) 10/18/19 08:00 Carbon Dioxide 32 mmol/L (22-30) H 10/18/19 08:00 Anion Gap 5 (5-19) 10/18/19 08:00 BUN 53 mg/dL (7-20) H 10/18/19 08:00 Creatinine 1.92 mg/dL (0.52-1.25) H 10/18/19 08:00 Est GFR ( Amer) 32 (>60) L 10/18/19 08:00 Est GFR (MDRD) Non-Af 26 (>60) L 10/18/19 08:00 Glucose 151 mg/dL (75-110) H 10/18/19 08:00 POC Glucose 148 mg/dL (70-110) H 10/18/19 12:01 Hemoglobin A1c % 7.8 % (4.7-6.0) H 10/15/19 05:19 Calcium 8.9 mg/dL (8.4-10.2) 10/18/19 08:00 Magnesium 2.0 mg/dL (1.6-2.3) 10/17/19 06:27 Total Bilirubin 1.2 mg/dL (0.2-1.3) 10/14/19 16:45 Direct Bilirubin 0.3 mg/dL (0.0-0.4) 10/14/19 16:45 Neonat Total Bilirubin Not Reportable 10/14/19 16:45 Neonat Direct Bilirubin Not Reportable 10/14/19 16:45 Neonat Indirect Bili Not Reportable 10/14/19 16:45 AST 33 U/L (14-36) 10/14/19 16:45 ALT 33 U/L (<35) 10/14/19 16:45 Alkaline Phosphatase 151 U/L (38-126) H 10/14/19 16:45 Creatine Kinase 29 U/L (30-135) L 10/15/19 10:53 CK-MB (CK-2) 0.29 ng/mL (<4.55) 10/15/19 10:53 Troponin I 0.012 ng/mL 10/15/19 10:53 NT-Pro-B Natriuret Pep 16938 pg/mL (<125) H 10/17/19 06:27 Total Protein 6.9 g/dL (6.3-8.2) 10/14/19 16:45 Albumin 3.6 g/dL (3.5-5.0) 10/14/19 16:45 Triglycerides 51 mg/dL (<150) 10/15/19 05:19 Cholesterol 84.13 mg/dL (0-200) 10/15/19 05:19 LDL Cholesterol Direct 50 mg/dL (<100) 10/15/19 05:19 VLDL Cholesterol 10.0 mg/dL (10-31) 10/15/19 05:19 HDL Cholesterol 24 mg/dL (>40) L 10/15/19 05:19 TSH 1.33 uIU/mL (0.47-4.68) 10/15/19 05:19 Free T3 pg/mL 3.56 pg/mL (2.77-5.27) 10/14/19 16:45 Urine Color STRAW 10/14/19 20:21 Urine Appearance CLEAR 10/14/19 20:21 Urine pH 7.0 (5.0-9.0) 10/14/19 20:21 Ur Specific Isabel 1.006 10/14/19 20:21 Urine Protein NEGATIVE mg/dL (NEGATIVE) 10/14/19 20:21 Urine Glucose (UA) NEGATIVE mg/dL (NEGATIVE) 10/14/19 20:21 Urine Ketones NEGATIVE mg/dL (NEGATIVE) 10/14/19 20:21 Urine Blood NEGATIVE (NEGATIVE) 10/14/19 20:21 Urine Nitrite NEGATIVE (NEGATIVE) 10/14/19 20:21 Urine Bilirubin NEGATIVE (NEGATIVE) 10/14/19 20:21 Urine Urobilinogen NEGATIVE mg/dL (<2.0) 10/14/19 20:21 Ur Leukocyte Esterase NEGATIVE (NEGATIVE) 10/14/19 20:21 Urine WBC (Auto) 1 /HPF 10/14/19 20:21 Urine RBC (Auto) 1 /HPF 10/14/19 20:21 U Hyaline Cast (Auto) 1 /LPF 10/14/19 20:21 Urine Bacteria (Auto) 3+ /HPF 10/14/19 20:21 Squamous Epi Cells Auto 7 /HPF 10/14/19 20:21 Urine Mucus (Auto) RARE /LPF 10/14/19 20:21 Urine Ascorbic Acid NEGATIVE (NEGATIVE) 10/14/19 20:21 10/14/19 10/14/19 10/15/19 16:45 22:56 05:19 CK-MB (CK-2) 0.28 0.25 Troponin I 0.014 0.015 0.017 NT-Pro-B Natriuret Pep [id number] H 10/15/19 10/17/19 10:53 06:27 CK-MB (CK-2) 0.29 Troponin I 0.012 NT-Pro-B Natriuret Pep [id number] H Impressions: Chest X-Ray 10/14/19 16:29 IMPRESSION: CARDIAC ENLARGEMENT. VASCULAR CONGESTION. Plan Time Spent: Greater than 30 Minutes Stroke Is this a Stroke Patient?: No Acute Heart Failure - Is this a Heart Failure Patient?: Yes Documentation of LVEF assessment?: Yes LVEF: LVEF Less Than or Equal to 35% Anticoagulant Therapy: N/A Discharged on Evidence-Based Beta Blockers: Yes Discharged on ARNI?: Yes Discharged on ARB?: N/A-Discharged on ARNI Discharged on ACEI?: N/A Discharged on ARNI For LVEF <35%, discharged on Aldosterone Antagonist?: No-document contraincations Reason(s) not discharged on Aldosterone Antagonist: Renal dysfunction (creatinine >2.5 mg/dL in men or 2.0 mg/dL in women) Follow-up Appointment scheduled within 7 days?: Yes - She plans to follow-up w ith her metal ceiling hanger in [place] early next week
== END 2019-10-18 16:00 | disposition home or self-care (01) | DRG 291 ==
LOC: ER 15:37 → EH 20:03 → 5 21:41
PROVIDERS: ADMIT Emergency Medicine; ATTEND Family Medicine
PROC: B24BZZZ Ultrasonography of Heart with Aorta (ICD-10-PCS; principal; 2019-10-17)
DX: I13.0 Hypertensive heart and chronic kidney disease with heart failure and stage 1 through stage 4 chronic kidney disease, or unspecified chronic kidney disease (principal); I50.23 Acute on chronic systolic (congestive) heart failure; Z68.41 Body mass index [BMI] 40.0-44.9, adult; J44.9 Chronic obstructive pulmonary disease, unspecified; N18.3 Chronic kidney disease, stage 3 (moderate); E11.22 Type 2 diabetes mellitus with diabetic chronic kidney disease; Z95.810 Presence of automatic (implantable) cardiac defibrillator; E66.01 Morbid (severe) obesity due to excess calories; Z95.2 Presence of prosthetic heart valve; I42.0 Dilated cardiomyopathy; I48.0 Paroxysmal atrial fibrillation; Z79.01 Long term (current) use of anticoagulants; F17.200 Nicotine dependence, unspecified, uncomplicated; I27.20 Pulmonary hypertension, unspecified; I07.1 Rheumatic tricuspid insufficiency; Z82.49 Family history of ischemic heart disease and other diseases of the circulatory system; Z83.3 Family history of diabetes mellitus; Z79.899 Other long term (current) drug therapy
CPT/HCPCS: 36415; 71046; 80048; 80053; 80061; 81001; 82550; 82553; 82803; 82962; 83036; 83735; 83880; 84443; 84481; 84484; 85025; 85027; 93005; 93010; 93306; 96374; 99291; 99292; J1940; J2550; J3490; J7050